=== PATIENT | male | born 1955 | race Caucasian/White ===

== ENCOUNTER 2019-09-04 09:06 | Emergency (ER) | payer BC ==
[2019-09-04 09:56] LABS: Glucose,Whole Blood 114 mg/dL (75-99)
[2019-09-04] MEDS ORDERED: SODIUM CHLORIDE 0.9% 1,000 ML IV STA (09:56)
[2019-09-04 10:25] LABS: ALT 31 U/L (4-49); AST 37 U/L (17-59); African American GFR (CKD) >90 (>60 ml/min/1.73 sqM); Albumin 4.5 g/dL (3.5-5.0); Alkaline Phosphatase 83 U/L (38-126); Anion Gap 7 mmol/L; Blood Urea Nitrogen 18 mg/dL (9-20); Calcium 9.4 mg/dL (8.4-10.2); Carbon Dioxide 26 mmol/L (22-30); Chloride 106 mmol/L (98-107); Creatine Kinase 226 U/L (55-170); Glucose 112 mg/dL (74-99); Non-African American GFR(CKD) 80 (>60 ml/min/1.73 sqM); Potassium 4.5 mmol/L (3.5-5.1); Sodium 139 mmol/L (137-145); Total Bilirubin 1.1 mg/dL (0.2-1.3); Total Protein 6.9 g/dL (6.3-8.2)
--- NOTE | 2019-09-04 10:30 | ED ---
Dizziness HPI - General Chief Complaint: Syncope Stated Complaint: Passed out Time Seen by Provider: 09/04/19 09:55 Source: patient Mode of arrival: ambulatory Limitations: no limitations - History of Present Illness Initial Comments: This is a 64-year-old male with a sensory benign history other than high cholesterol who was driving his car and again of his driveway with his in the passenger seat when he suddenly became unresponsive his head tilted to the side his eyes rolled but he was unresponsive for about 30 seconds. Patient states that he did have a warm feeling and felt somewhat lightheaded prior to the event . Patient had no complaints of palpitations headache dizziness blurry vision chest pain or other symptoms. He woke up relatively quickly. He did have an episode like this about 2 years ago that was never worked up. He did eat yogurt for breakfast today no change in medications no recent illnesses. No history of strokes heart or Lung disease. No other modifying factors at this time MD Complaint: other - Related Data Allergies Allergy/AdvReac Type Severity Reaction Status Date / Time No Known Allergies Allergy Verified 09/04/19 09:19 Review of Systems ROS Statement: Those systems with pertinent positive or pertinent negative responses have been documented in the HPI. ROS Other: All systems not noted in ROS Statement are negative. Past Medical History Past Medical History: Hyperlipidemia History of Any Multi-Drug Resistant Organisms: None Reported Past Surgical History: Appendectomy, Back Surgery, Hernia Repair, Tonsillectomy Past Psychological History: No Psychological Hx Reported Smoking Status: Never smoker Past Alcohol Use History: Occasional Past Drug Use History: None Reported General Exam - General Exam Comments Initial Comments: This is a well-developed well-nourished awake alert oriented 3 male Limitations: no limitations General appearance: alert, in no apparent distress Head exam: Present: atraumatic, normocephalic, normal inspection Eye exam: Present: normal appearance, PERRL, EOMI. Absent: scleral icterus, conjunctival injection, periorbital swelling ENT exam: Present: normal exam, mucous membranes moist Neck exam: Present: normal inspection, full ROM, other (No stridor JVD or bruits). Absent: tenderness, meningismus, lymphadenopathy Respiratory exam: Present: normal lung sounds bilaterally. Absent: respiratory distress, wheezes, rales, rhonchi, stridor Cardiovascular Exam: Present: regular rate, normal rhythm, normal heart sounds. Absent: systolic murmur, diastolic murmur, rubs, gallop, clicks GI/Abdominal exam: Present: soft, normal bowel sounds. Absent: distended, tenderness, guarding, rebound, rigid, bruit, pulsatile mass Extremities exam: Present: normal inspection, full ROM, normal capillary refill. Absent: tenderness, pedal edema, joint swelling, calf tenderness Back exam: Present: normal inspection Neurological exam: Present: alert, oriented X3, CN II-XII intact Psychiatric exam: Present: normal affect, normal mood Skin exam: Present: warm, dry, intact, normal color. Absent: rash Course Vital Signs 09/04/19 09/04/19 09/04/19 09:14 09:50 09:56 Temperature 97.8 F Pulse Rate 75 Pulse Rate [ 67 65 Collections Clerk ] Respiratory 18 18 Rate Blood Pressure 137/87 Blood Pressure [Sitting] Blood Pressure [Standing] Blood Pressure 131/86 [Supine] O2 Sat by Pulse 99 Oximetry 09/04/19 09/04/19 09:58 10:00 Temperature Pulse Rate Pulse Rate [ 63 93 Collections Clerk ] Respiratory 18 18 Rate Blood Pressure Blood Pressure 133/87 [Sitting] Blood Pressure 137/84 [Standing] Blood Pressure [Supine] O2 Sat by Pulse Oximetry - Reevaluation(s) Reevaluation #1: 09/04/19 12:57 I did reevaluate patient on multiple occasions he is asymptomatic he did have a marked difference in his heart rate on orthostatic testing this did improve after IV fluids. Medical Decision Making - Medical Decision Making Condition is asymptomatic he feels much improved after fluids the presentation is consistent with orthostatic/vasovagal episode. Patient will be discharge is cautioned not to drive until follow-up with his doctor in 2 days. Return if is any problems. The patient's family is in agreement with this. - Lab Data Result diagrams: 09/04/19 10:10 09/04/19 10:10 Lab Results 09/04/19 09/04/19 09/04/19 Range/Units 09:55 10:10 10:10 WBC 6.8 (3.8-10.6) k/uL RBC 5.04 (4.30-5.90) m/uL Hgb 14.9 (13.0-17.5) gm/dL Hct 43.6 (39.0-53.0) % MCV 86.5 (80.0-100.0) fL MCH 29.5 (25.0-35.0) pg MCHC 34.1 (31.0-37.0) g/dL RDW 12.4 (11.5-15.5) % Plt Count 173 (150-450) k/uL Neutrophils % 65 % Lymphocytes % 24 % Monocytes % 7 % Eosinophils % 1 % Basophils % 1 % Neutrophils # 4.4 (1.3-7.7) k/uL Lymphocytes # 1.6 (1.0-4.8) k/uL Monocytes # 0.5 (0-1.0) k/uL Eosinophils # 0.1 (0-0.7) k/uL Basophils # 0.0 (0-0.2) k/uL PT (9.0-12.0) sec INR (<1.2) APTT (22.0-30.0) sec D-Dimer (<0.60) mg/L FEU Sodium 139 (137-145) mmol/L Potassium 4.5 (3.5-5.1) mmol/L Chloride 106 (98-107) mmol/L Carbon Dioxide 26 (22-30) mmol/L Anion Gap 7 mmol/L BUN 18 (9-20) mg/dL Creatinine 1.00 (0.66-1.25) mg/dL Est GFR (CKD-EPI)AfAm >90 (>60 ml/min/1.73 sqM) Est GFR (CKD-EPI)NonAf 80 (>60 ml/min/1.73 sqM) Glucose 112 H (74-99) mg/dL POC Glucose (mg/dL) 114 H (75-99) mg/dL POC Glu Dog Catcher ID [place] Calcium 9.4 (8.4-10.2) mg/dL Magnesium 2.0 (1.6-2.3) mg/dL Total Bilirubin 1.1 (0.2-1.3) mg/dL AST 37 (17-59) U/L ALT 31 (4-49) U/L Alkaline Phosphatase 83 (38-126) U/L Creatine Kinase 226 H (55-170) U/L Troponin I (0.000-0.034) ng/mL Total Protein 6.9 (6.3-8.2) g/dL Albumin 4.5 (3.5-5.0) g/dL TSH 1.860 (0.465-4.680) mIU/L Urine Color Urine Appearance (Clear) Urine pH (5.0-8.0) Ur Specific [place] (1.001-1.035) Urine Protein (Negative) Urine Glucose (UA) (Negative) Urine Ketones (Negative) Urine Blood (Negative) Urine Nitrite (Negative) Urine Bilirubin (Negative) Urine Urobilinogen (<2.0) mg/dL Ur Leukocyte Esterase (Negative) 09/04/19 09/04/19 09/04/19 Range/Units 10:10 10:10 11:49 WBC (3.8-10.6) k/uL RBC (4.30-5.90) m/uL Hgb (13.0-17.5) gm/dL Hct (39.0-53.0) % MCV (80.0-100.0) fL MCH (25.0-35.0) pg MCHC (31.0-37.0) g/dL RDW (11.5-15.5) % Plt Count (150-450) k/uL Neutrophils % % Lymphocytes % % Monocytes % % Eosinophils % % Basophils % % Neutrophils # (1.3-7.7) k/uL Lymphocytes # (1.0-4.8) k/uL Monocytes # (0-1.0) k/uL Eosinophils # (0-0.7) k/uL Basophils # (0-0.2) k/uL PT 9.9 (9.0-12.0) sec INR 0.9 (<1.2) APTT 23.1 (22.0-30.0) sec D-Dimer 0.28 (<0.60) mg/L FEU Sodium (137-145) mmol/L Potassium (3.5-5.1) mmol/L Chloride (98-107) mmol/L Carbon Dioxide (22-30) mmol/L Anion Gap mmol/L BUN (9-20) mg/dL Creatinine (0.66-1.25) mg/dL Est GFR (CKD-EPI)AfAm (>60 ml/min/1.73 sqM) Est GFR (CKD-EPI)NonAf (>60 ml/min/1.73 sqM) Glucose (74-99) mg/dL POC Glucose (mg/dL) (75-99) mg/dL POC Glu Dog Catcher ID Calcium (8.4-10.2) mg/dL Magnesium (1.6-2.3) mg/dL Total Bilirubin (0.2-1.3) mg/dL AST (17-59) U/L ALT (4-49) U/L Alkaline Phosphatase (38-126) U/L Creatine Kinase (55-170) U/L Troponin I <0.012 (0.000-0.034) ng/mL Total Protein (6.3-8.2) g/dL Albumin (3.5-5.0) g/dL TSH (0.465-4.680) mIU/L Urine Color Light Yellow Urine Appearance Clear (Clear) Urine pH 6.5 (5.0-8.0) Ur Specific [place] 1.009 (1.001-1.035) Urine Protein Negative (Negative) Urine Glucose (UA) Negative (Negative) Urine Ketones Negative (Negative) Urine Blood Negative (Negative) Urine Nitrite Negative (Negative) Urine Bilirubin Negative (Negative) Urine Urobilinogen <2.0 (<2.0) mg/dL Ur Leukocyte Esterase Negative (Negative) - EKG Data -: EKG Interpreted by Nd EKG shows normal: sinus rhythm (Sinus bradycardia 59. Interval 160 QRS duration 86 QT since QTC 420/4:15 nonspecific inferior changes) - Radiology Data Radiology results: report reviewed (I did review the imaging and reports no acute findings.), image reviewed Disposition Clinical Impression: Vasovagal syncope, Syncope due to orthostatic hypotension, Dehydration Disposition: HOME SELF-CARE Condition: Good Instructions (If sedation given, give patient instructions): Syncope (ED), Dehydration (ED) Additional Instructions: Adequate fluid hydration, no driving or operating machinery until cleared by her doctor Is patient prescribed a controlled substance at d/c from ED?: No Referrals: Ladi Goldstein III, MD [Primary Care Provider] - 1-2 days
[2019-09-04 10:31] LABS: D-Dimer 0.28 mg/L FEU (<0.60); INR 0.9 (<1.2); Partial Thromboplastin Time 23.1 sec (22.0-30.0); Prothrombin Time 9.9 sec (9.0-12.0)
--- NOTE | 2019-09-04 10:32 | XR ---
EXAMINATION TYPE: XR chest 2V DATE OF EXAM ORDERED: 09/04/2019 HISTORY: syncope. REFERENCE: None. FINDINGS: The lungs are clear. Pleural spaces are clear. Heart size is normal. IMPRESSION: NORMAL CHEST.
--- NOTE | 2019-09-04 10:34 | CT ---
EXAMINATION TYPE: CT brain wo con DATE OF EXAM: 09/04/2019 COMPARISON: Previous study dated 11/09/2012. HISTORY: Syncope CT DLP: 1099.4 mGycm Automated exposure control for dose reduction was used. FINDINGS: Central structures are midline. There is no evidence of hydrocephalus. No acute focal lesion, mass ef fect or midline shift is seen. I do not see evidence of intracranial blood. Visualized portions of the paranasal sinuses and mastoids are clear. The bony calvarium is intact. IMPRESSION: NORMAL CT SCAN OF THE BRAIN.
[2019-09-04 10:54] LABS: Basophils % (A) 1 %; Eosinophils # (A) 0.1 k/uL (0-0.7); Eosinophils % (A) 1 %; HCT 43.6 % (39.0-53.0); HGB 14.9 gm/dL (13.0-17.5); Lymphocytes # (A) 1.6 k/uL (1.0-4.8); Lymphocytes % (A) 24 %; MCH 29.5 pg (25.0-35.0); MCHC 34.1 g/dL (31.0-37.0); MCV 86.5 fL (80.0-100.0); Mean Platelet Volume 8.4; Monocytes # (A) 0.5 k/uL (0-1.0); Monocytes % (A) 7 %; Neutrophils # (A) 4.4 k/uL (1.3-7.7); Neutrophils % (A) 65 %; Platelet Count 173 k/uL (150-450); RBC 5.04 m/uL (4.30-5.90); RDW 12.4 % (11.5-15.5); WBC 6.8 k/uL (3.8-10.6)
[2019-09-04] MEDS ORDERED: SODIUM CHLORIDE 0.9% 500 ML 500 ML IV STA (12:03)
[2019-09-04 12:20] LABS: Appearance,Urine Clear (Clear); Bilirubin,Urine Negative (Negative); Blood,Urine Negative (Negative); Color,Urine Light Yellow; Glucose,Urine (UA) Negative (Negative); Ketones,Urine Negative (Negative); Leukocyte Esterase,Urine Negative (Negative); Nitrite,Urine Negative (Negative); PH, Urine 6.5 (5.0-8.0); Protein,Urine Negative (Negative); Specific Gravity,Urine 1.009 (1.001-1.035); Urobilinogen,Urine <2.0 mg/dL (<2.0)
[2019-09-04 13:19] VITALS: BP 118/72; PULSE 64; RESP 16; TEMP 98.1
== END 2019-09-04 13:15 | disposition home or self-care (01) ==
LOC: EC 09:06
DX: I95.1 Orthostatic hypotension (principal); E86.0 Dehydration
CPT/HCPCS: 36415; 70450; 71046; 80053; 81003; 82550; 83735; 84443; 84484; 85025; 85379; 85610; 85730; 93005; 96360; 96361; 99284

== ENCOUNTER → 2019-09-29 | Outpatient (CLI) | payer BC ==
--- NOTE | 2019-09-29 10:42 | US ---
EXAMINATION TYPE: US carotid duplex BILAT DATE OF EXAM: 09/29/2019 COMPARISON: NONE CLINICAL HISTORY: R55 SYNCOPE AND COLLAPSE, R47.1 APHASIA. Patient stated had 2 syncopal episodes in past 2 years. EXAM MEASUREMENTS: RIGHT: Peak Systolic Velocity (PSV) cm/sec ----- Right CCA: 103.1 ----- Right ICA: 104.3 ----- Right ECA: 65.6 ICA/CCA ratio: 1.0 RIGHT: End Diastole cm/sec ----- Right CCA: 31.1 ----- Right ICA: 31.1 ----- Right ECA: 11.7 LEFT: Peak Systolic Velocity (PSV) cm/sec ----- Left CCA: 93.0 ----- Left ICA: 81.3 ----- Left ECA: 76.0 ICA/CCA ratio: 0.9 LEFT: End Diastole cm/sec ----- Left CCA: 28.5 ----- Left ICA: 30.1 ----- Left ECA: 20.4 VERTEBRALS (direction of flow): Right Vertebral: Antegrade Left Vertebral: Antegrade Rhythm: Normal Very mild intimal wall thickening is noted at bilateral carotid bifurcation. IMPRESSION: No evidence for hemodynamically significant stenosis. Criteria for Assigning % of Stenosis / Diameter reduction (Estimation based on the indirect measurements of the internal carotid artery velocities (ICA PSV). 1. Normal (no stenosis)=ICA PSV < 125 cm/s: ratio < 2.0: ICA EDV<40 cm/s. 2. Less than 50% stenosis=ICA PSV < 125 cm/s: ratio < 2.0: ICA EDV<40 cm/s. 3. 50 to 69% stenosis=ICA PSV of 125 to 230 cm/s: ration 2.0 ? 4.0: ICA EDV 40-100 cm/s. 4. Greater than 70% stenosis to near occlusion= ICA PSV > 230 cm/s: ratio > 4.0: ICA EDV > 100 cm/s. 5. Near occlusion= ICA PSV velocities may be low or undetectable: variable ratio and ICA EDV. 6. Total occlusion=unable to detect flow.
--- NOTE | 2019-09-29 10:43 | US ---
EXAMINATION TYPE: US thyroid st tissue head/neck DATE OF EXAM: 09/29/2019 COMPARISON: NONE CLINICAL HISTORY: E04.2 NONTOXIC MULTINODULAR GOITER. Syncopal episode x 2 in past 2 years. GLAND SIZE: Right Lobe: 5.2 x 1.5 x 1.3 cm Overall Parenchyma: homogenous Left Lobe: 5.4 x 1.5 x 1.1 cm Overall Parenchyma: homogeneous Isthmus Thickness: 0.3 cm NODULES RIGHT: # of nodules measured on right: 0 LEFT: # of nodules measured on left: 0 ISTHMUS: # of nodules measured in the isthmus: 0 Bilateral neck scanned: inferior to right thyroid is oval, hyperechoic nodule = 0.6 x 0.7 x 0.2cm IMPRESSION: Mildly enlarged thyroid lobes. Probable lymph node inferior to the right thyroid lobe
--- NOTE | 2019-10-22 12:42 | EM ---
EVENT MONITOR DATE OF SERVICE: 09/29/2019 The patient was monitored for 21 days. The baseline rhythm appeared to be sinus mechanism. The patient did have multiple episodes of sinus tachycardia with a heart rate between 150 to 180 beats per minute. No evidence of any significant sinus bradycardia noted. Beside that, the patient did have a total of 3 episodes of paroxysmal atrial tachycardia with a heart rate in the 80s. No advanced AV block seen. No evidence of any significant ventricular arrhythmia noted. The patient does not seems to have any symptoms. CONCLUSION: 1. This is a 21 day event monitor. 2. The baseline rhythm is a sinus mechanism. 3. The patient did have multiple episodes of sinus tachycardia with a heart rate above 150 and sometimes above 180 beats per minute. 4. The patient did have a total of 3 episodes of paroxysmal atrial tachycardia with a heart rate around 80 to 90 beats per minute. 5. No evidence of any significant ventricular arrhythmia noted. 6. No evidence of sinus pause or sinus arrest. 7. The patient reported no symptoms. MMODL / IJN: [id number] /
== END | disposition home or self-care (01) ==
LOC: RADUSWWP 09:34
PROVIDERS: ATTEND Family Medicine
DX: E04.9 Nontoxic goiter, unspecified (principal); I47.1 Supraventricular tachycardia; R55 Syncope and collapse; R47.01 Aphasia; R74.8 Abnormal levels of other serum enzymes
CPT/HCPCS: 36415; 76536; 82550; 82552; 82553; 93270; 93880

== ENCOUNTER 2022-12-25 06:49 | Emergency (ER) | payer MEDICARE, BC ==
[2022-12-25 06:55] VITALS: RESP 18
[2022-12-25] MEDS ORDERED: SODIUM CHLORIDE 0.9% 1,000 ML IV STA (07:05)
--- NOTE | 2022-12-25 07:12 | ED ---
Abdominal Pain HPI - General Chief Complaint: Abdominal Pain Stated Complaint: ABD PAIN Time Seen by Provider: 12/25/22 06:58 Source: patient, RN notes reviewed Mode of arrival: ambulatory Limitations: no limitations - History of Present Illness Initial Comments: 67-year-old male presents emergency Department chief complaint right-sided abdominal pain. Patient states started 2 days ago. Patient states pain is getting worse since starting with all movement including coughing with twisting and bending. Patient said no dysuria no hematuria no change in bowel habits no nausea vomiting no fever or chills. He states she's had a prior appendectomy pain is increasing towards [place] was at rest. - Related Data Home Medications Medication Instructions Recorded Confirmed Omeprazole 20 mg PO HS 12/25/22 12/25/22 Simvastatin [Zocor] 20 mg PO HS 12/25/22 12/25/22 Allergies Allergy/AdvReac Type Severity Reaction Status Date / Time No Known Allergies Allergy Verified 12/25/22 09:02 Review of Systems ROS Statement: Those systems with pertinent positive or pertinent negative responses have been documented in the HPI. ROS Other: All systems not noted in ROS Statement are negative. Past Medical History Past Medical History: Hyperlipidemia History of Any Multi-Drug Resistant Organisms: None Reported Past Surgical History: Appendectomy, Back Surgery, Hernia Repair, Tonsillectomy Past Psychological History: No Psychological Hx Reported Smoking Status: Never smoker Past Alcohol Use History: Occasional Past Drug Use History: None Reported General Exam Limitations: no limitations General appearance: alert, in no apparent distress Head exam: Present: atraumatic, normocephalic, normal inspection Eye exam: Present: normal appearance, PERRL, EOMI. Absent: scleral icterus, conjunctival injection, periorbital swelling ENT exam: Present: normal exam, mucous membranes moist Neck exam: Present: normal inspection, full ROM. Absent: tenderness, mening ismus, lymphadenopathy Respiratory exam: Present: normal lung sounds bilaterally. Absent: respiratory distress, wheezes, rales, rhonchi, stridor Cardiovascular Exam: Present: regular rate, normal rhythm, normal heart sounds. Absent: systolic murmur, diastolic murmur, rubs, gallop, clicks GI/Abdominal exam: Present: soft, tenderness (Right lower quadrant tenderness significant), normal bowel sounds. Absent: distended, guarding, rebound, rigid Back exam: Absent: CVA tenderness (R), CVA tenderness (L) Skin exam: Present: warm, dry, intact, normal color. Absent: rash Course Vital Signs 12/25/22 12/25/22 06:50 10:44 Temperature 97.6 F 97.8 F Pulse Rate 82 68 Respiratory 18 18 Rate Blood Pressure 147/86 121/94 O2 Sat by Pulse 99 98 Oximetry Medical Decision Making - Medical Decision Making Was pt. sent in by a medical professional or institution (, [facility], [employer], urgent care, hospital, or [facility]...) When possible be specific @ -No Did you speak to anyone other than the patient for history (EMS, parent, family, police, friend...)? What history was obtained from this source @ -No Did you review nursing and triage notes (agree or disagree)? Why? @ -I reviewed and agree with nursing and triage notes Were old charts reviewed (outside hosp., previous admission, EMS record, old EKG, old radiological studies, urgent care reports/EKG's, [facility] records)? Report findings @ -No old charts were reviewed Differential Diagnosis (chest pain, altered mental status, abdominal pain women, abdominal pain men, vaginal bleeding, weakness, fever, dyspnea, syncope, headache, dizziness, GI bleed, back pain, seizure, CVA, palpatations, mental health, musculoskeletal)? @ -Differential Abdominal Pain Men: Appendicitis, cholecystitis, diverticulosis, ischemic bowel, pancreatitis, hepatitis, UTI, gastroenteritis, AAA, incarcerated hernia, bowel obstruction, constipation, inflammatory bowel, hepatitis, peptic ulcer disease, splenic infarction, perforated viscus, testicular torsion, this is not meant to be an all-inclusive listicable EKG interpreted by me (3pts min.). @ -None X-rays interpreted by me (1pt min.). @ -None done CT interpreted by me (1pt min.). @ -CT abdomen and pelvis shows no acute process no evidence of infection or obstruction U/S interpreted by me (1pt. min.). @ -None done What testing was considered but not performed or refused? (CT, X-rays, U/S, labs)? Why? @ -None What meds were considered but not given or refused? Why? @ -None Did you discuss the management of the patient with other professionals (professionals i.e. , PA, DIG[employer] MARKETING INTERN, lab, RT, psych nurse, social media job titles, marsh buggy operator, teacher, radiation safety officer, embedded case manager)? Give summary @ -No Was smoking cessation discussed for >3mins.? @ -No Was critical care preformed (if so, how long)? @ -No Were there social determinants of health that impacted care today? How? (Homelessness, low income, unemployed, alcoholism, drug addiction, transportation, low edu. Level, literacy, decrease access to med. care, care home, rehab)? @ -No Was there de-escalation of care discussed even if they declined (Discuss DNR or withdrawal of care, Hospice)? DNR status @ -No What co-morbidities impacted this encounter? (DM, HTN, Smoking, COPD, CAD, Cancer, CVA, ARF, Chemo, Hep., AIDS, mental health diagnosis, sleep apnea, morbid obesity)? @ -None Was patient admitted / discharged? Hospital course, mention meds given and route, prescriptions, significant lab abnormalities, going to OR and other pertinent info. @ -Discharge patient's pain is reproducible and probably related to abdominal wall injury. Patient laboratory studies and CT unremarkable patient advised to rest, follow-up with PCP.. Undiagnosed new problem with uncertain prognosis? @ -No Drug Therapy requiring intensive monitoring for toxicity (Heparin, Nitro, Insulin, Cardizem)? @ -No Were any procedures done? @ -No Diagnosis/symptom? @ -Abdominal wall pain Acute, or Chronic, or Acute on Chronic? @ -Acute Uncomplicated (without systemic symptoms) or Complicated (systemic symptoms)? @ -Uncomplicated Side effects of treatment? @ -No Exacerbation, Progression, or Severe Exacerbation? @ -No Poses a threat to life or bodily function? How? (Chest pain, [place], [place], pneumonia, PE, COPD, DKA, ARF, appy, cholecystitis, CVA, Diverticulitis, Homicidal, Suicidal, threat to staff... and all critical care pts) @ -No - Lab Data Result diagrams: 12/25/22 07:12/25/22 07: Lab Results 12/25/22 12/25/22 12/25/22 Range/Units 07: 07: 07:23 WBC 8.2 (3.8-10.6) k/uL RBC 4.47 (4.30-5.90) m/uL Hgb 13.2 (13.0-17.5) gm/dL Hct 37.9 L (39.0-53.0) % MCV 84.8 (80.0-100.0) fL MCH 29.5 (25.0-35.0) pg MCHC 34.8 (31.0-37.0) g/dL RDW 13.1 (11.5-15.5) % Plt Count 166 (150-450) k/uL MPV 8.8 Neutrophils % Not Reportable Neutrophils % (Manual) 71 % Lymphocytes % Not Reportable Lymphocytes % (Manual) 20 % Monocytes % Not Reportable Monocytes % (Manual) 7 % Eosinophils % Not Reportable Eosinophils % (Manual) 1 % Basophils % Not Reportable Basophils % (Manual) 3 % Neutrophils # Not Reportable Neutrophils # (Manual) 5.82 (1.3-7.7) k/uL Lymphocytes # Not Reportable Lymphocytes # (Manual) 1.64 (1.0-4.8) k/uL Monocytes # Not Reportable Monocytes # (Manual) 0.57 (0-1.0) k/uL Eosinophils # Not Reportable Eosinophils # (Manual) 0.08 (0-0.7) k/uL Basophils # Not Reportable Basophils # (Manual) 0.25 H (0-0.2) k/uL Nucleated RBCs 0 (0-0) /100 WBC Manual Slide Review Performed RBC Morphology Normal Sodium 140 (137-145) mmol/L Potassium 4.2 (3.5-5.1) mmol/L Chloride 105 (98-107) mmol/L Carbon Dioxide 30 (22-30) mmol/L Anion Gap 5 mmol/L BUN 10 (9-20) mg/dL Creatinine 1.05 (0.66-1.25) mg/dL Est GFR (CKD-EPI)AfAm 86 (>60 ml/min/1.73 sqM) Est GFR (CKD-EPI)NonAf 75 (>60 ml/min/1.73 sqM) Glucose 110 H (74-99) mg/dL Plasma Lactic Acid [place] (0.7-2.0) mmol/L Calcium 8.9 (8.4-10.2) mg/dL Total Bilirubin 0.7 (0.2-1.3) mg/dL AST 36 (17-59) U/L ALT 39 (4-49) U/L Alkaline Phosphatase 100 (38-126) U/L Total Protein 6.1 L (6.3-8.2) g/dL Albumin 4.1 (3.5-5.0) g/dL Lipase 111 (23-300) U/L Urine Color Light Yellow Urine Appearance Clear (Clear) Urine pH 7.0 (5.0-8.0) Ur Specific [place] 1.008 (1.001-1.035) Urine Protein Negative (Negative) Urine Glucose (UA) Negative (Negative) Urine Ketones Negative (Negative) Urine Blood Negative (Negative) Urine Nitrite Negative (Negative) Urine Bilirubin Negative (Negative) Urine Urobilinogen <2.0 (<2.0) mg/dL Ur Leukocyte Esterase Negative (Negative) 12/25/22 Range/Units 07:23 WBC (3.8-10.6) k/uL RBC (4.30-5.90) m/uL Hgb (13.0-17.5) gm/dL Hct (39.0-53.0) % MCV (80.0-100.0) fL MCH (25.0-35.0) pg MCHC (31.0-37.0) g/dL RDW (11.5-15.5) % Plt Count (150-450) k/uL MPV Neutrophils % Neutrophils % (Manual) % Lymphocytes % Lymphocytes % (Manual) % Monocytes % Monocytes % (Manual) % Eosinophils % Eosinophils % (Manual) % Basophils % Basophils % (Manual) % Neutrophils # Neutrophils # (Manual) (1.3-7.7) k/uL Lymphocytes # Lymphocytes # (Manual) (1.0-4.8) k/uL Monocytes # Monocytes # (Manual) (0-1.0) k/uL Eosinophils # Eosinophils # (Manual) (0-0.7) k/uL Basophils # Basophils # (Manual) (0-0.2) k/uL Nucleated RBCs (0-0) /100 WBC Manual Slide Review RBC Morphology Sodium (137-145) mmol/L Potassium (3.5-5.1) mmol/L Chloride (98-107) mmol/L Carbon Dioxide (22-30) mmol/L Anion Gap mmol/L BUN (9-20) mg/dL Creatinine (0.66-1.25) mg/dL Est GFR (CKD-EPI)AfAm (>60 ml/min/1.73 sqM) Est GFR (CKD-EPI)NonAf (>60 ml/min/1.73 sqM) Glucose (74-99) mg/dL Plasma Lactic Acid [place] 0.7 (0.7-2.0) mmol/L Calcium (8.4-10.2) mg/dL Total Bilirubin (0.2-1.3) mg/dL AST (17-59) U/L ALT (4-49) U/L Alkaline Phosphatase (38-126) U/L Total Protein (6.3-8.2) g/dL Albumin (3.5-5.0) g/dL Lipase (23-300) U/L Urine Color Urine Appearance (Clear) Urine pH (5.0-8.0) Ur Specific [place] (1.001-1.035) Urine Protein (Negative) Urine Glucose (UA) (Negative) Urine Ketones (Negative) Urine Blood (Negative) Urine Nitrite (Negative) Urine Bilirubin (Negative) Urine Urobilinogen (<2.0) mg/dL Ur Leukocyte Esterase (Negative) Disposition Clinical Impression: Abdominal pain Disposition: HOME SELF-CARE Condition: Stable Instructions (If sedation given, give patient instructions): Abdominal Pain (ED) Additional Instructions: Please return to the Emergency Department if symptoms worsen or any other concerns. Is patient prescribed a controlled substance at d/c from ED?: No Referrals: Ladi Goldstein III, MD [Primary Care Provider] - 1-2 days Time of Disposition: 10:35
[2022-12-25 07:39] LABS: HCT 37.9 % (39.0-53.0); HGB 13.2 gm/dL (13.0-17.5); MCH 29.5 pg (25.0-35.0); MCHC 34.8 g/dL (31.0-37.0); MCV 84.8 fL (80.0-100.0); Mean Platelet Volume 8.8; Platelet Count 166 k/uL (150-450); RBC 4.47 m/uL (4.30-5.90); RDW 13.1 % (11.5-15.5); WBC 8.2 k/uL (3.8-10.6)
[2022-12-25 07:50] LABS: Albumin 4.1 g/dL (3.5-5.0); Calcium 8.9 mg/dL (8.4-10.2); Potassium 4.2 mmol/L (3.5-5.1); Total Bilirubin 0.7 mg/dL (0.2-1.3); Total Protein 6.1 g/dL (6.3-8.2)
[2022-12-25 08:52] LABS: Appearance,Urine Clear (Clear); Bilirubin,Urine Negative (Negative); Blood,Urine Negative (Negative); Color,Urine Light Yellow; Glucose,Urine (UA) Negative (Negative); Ketones,Urine Negative (Negative); Leukocyte Esterase,Urine Negative (Negative); Nitrite,Urine Negative (Negative); Protein,Urine Negative (Negative); Specific Gravity,Urine 1.008 (1.001-1.035); Urobilinogen,Urine <2.0 mg/dL (<2.0)
--- NOTE | 2022-12-25 09:42 | CT ---
EXAMINATION TYPE: CT abdomen pelvis w con DATE OF EXAM: 12/25/2022 COMPARISON: None. HISTORY: RLQ pain. CT DLP: 1027.3 mGycm, Automated Exposure Control for Dose Reduction was Utilized. CONTRAST: CT scan of the abdomen and pelvis is performed without oral and with IV Contrast, patient injected wi th 100 mL of Isovue 300. FINDINGS: LUNG BASES: No significant abnormality is appreciated. LIVER/GB: No significant abnormality is appreciated. PANCREAS: No significant abnormality is seen. SPLEEN: No significant abnormality is seen. ADRENALS: No significant abnormality is seen. KIDNEYS: Symmetric cortical medullary uptake and excretion without hydronephrosis seen bilaterally. T here are central simple parapelvic cyst in the left kidney identified. Moderately distended bladder. BOWEL: No suspicious small or large bowel dilatation. Terminal ileum appears grossly within normal limits. Appendix not seen with certainty. No inflammatory changes at base of cecum in the right uppe r pelvis. PROSTATE/SEMINAL VESICLES: Scattered left-sided pelvic phleboliths. Prostate gland measures upper rivas its of normal in size. LYMPH NODES: No greater than 1cm abdominal or pelvic lymph nodes are appreciated. OSSEOUS STRUCTURES: Posterior interpedicular rods and screws L5-S1 level. Artificial disc material. G rade 1 anterolisthesis L4 on L5. OTHER: [id number] peripheral mixed plaque of the aorta extends into branch vessels. IMPRESSION: Normal or abnormal appendix not identified. No inflammatory change at base of cecum to adler ggest acute appendicitis. No bowel obstruction. No acute findings clearly seen.
[2022-12-25 09:51] LABS: Basophils # (M) 0.25 k/uL (0-0.2); Eosinophils # (M) 0.08 k/uL (0-0.7); Lymphocytes # (M) 1.64 k/uL (1.0-4.8); Monocytes # (M) 0.57 k/uL (0-1.0); Neutrophils # (M) 5.82 k/uL (1.3-7.7); Neutrophils % (M) 71 %; Nucleated Red Blood Cells 0 /100 WBC (0-0); Total Cells Counted 200
[2022-12-25 09:58] LABS: RBC Morphology Normal
[2022-12-25 10:45] VITALS: BP 121/94; PULSE 68; TEMP 97.8
== END 2022-12-25 10:45 | disposition home or self-care (01) ==
LOC: EC 06:49
DX: R10.31 Right lower quadrant pain (principal); E78.5 Hyperlipidemia, unspecified; Z79.899 Other long term (current) drug therapy; Z90.49 Acquired absence of other specified parts of digestive tract
CPT/HCPCS: 36415; 80053; 83605; 83690; 85025; 81003; 74177; 99284; 96360; Q9967

== ENCOUNTER 2023-04-18 07:44 | Emergency (ER) | payer MEDICARE, BC ==
[2023-04-18 07:53] VITALS: TEMP 98.4
[2023-04-18] MEDS ORDERED: ONDANSETRON 4 MG/2 ML VIAL IVP STA (08:05)
[2023-04-18] MEDS ORDERED: KETOROLAC 15 MG/ML 1 ML VIAL IVP STA (08:05)
--- NOTE | 2023-04-18 08:08 | ED ---
General Adult HPI - General Chief complaint: Abdominal Pain Stated complaint: Abdominal pain Time Seen by Provider: 04/18/23 07:54 Source: patient, RN notes reviewed Mode of arrival: ambulatory Limitations: no limitations - History of Present Illness Initial comments: Patient is a pleasant 67-year-old male presenting to the emergency department with concerns with abdominal pain. Onset of symptoms was this morning. Discomfort is moderate to severe. Discomfort is steady. Discomfort does increase a little bit with movement. Patient has had some right mid back discomfort for the past one week however that has now resolved. Patient has mild nausea. No vomiting. No constipation or diarrhea. No hematuria or dysuria. No fever. No history of similar symptoms previously. On exam patient states area near the right CVA is where previous discomfort was - Related Data Home Medications Medication Instructions Recorded Confirmed Omeprazole 20 mg PO HS 12/25/22 12/25/22 Simvastatin [Zocor] 20 mg PO HS 12/25/22 12/25/22 Previous Rx's Medication Instructions Recorded Ketorolac [Toradol] 10 mg PO Q6HR PRN #15 tab 04/18/23 Metoclopramide HCl [Reglan] 10 mg PO Q6HR PRN #15 tablet 04/18/23 Allergies Allergy/AdvReac Type Severity Reaction Status Date / Time No Known Allergies Allergy Verified 04/18/23 07:53 Review of Systems ROS Statement: Those systems with pertinent positive or pertinent negative responses have been documented in the HPI. ROS Other: All systems not noted in ROS Statement are negative. Constitutional: Denies: fever Eyes: Denies: eye pain ENT: Denies: ear pain Respiratory: Denies: cough Cardiovascular: Denies: chest pain Endocrine: Denies: fatigue Gastrointestinal: Reports: as per HPI, abdominal pain, nausea. Denies: vomiting Genitourinary: Denies: dysuria Musculoskeletal: Reports: as per HPI Skin: Denies: rash Past Medical History Past Medical History: Hyperlipidemia History of Any Multi-Drug Resistant Organisms: None Reported Past Surgical History: Appendectomy, Back Surgery, Hernia Repair, Tonsillectomy Past Psychological History: No Psychological Hx Reported Smoking Status: Never smoker Past Alcohol Use History: Occasional Past Drug Use History: None Reported General Exam Limitations: no limitations General appearance: alert, in no apparent distress Head exam: Present: normocephalic Eye exam: Present: normal appearance, PERRL Neck exam: Present: normal inspection Respiratory exam: Present: normal lung sounds bilaterally Cardiovascular Exam: Present: regular rate, normal rhythm Expanded Peripheral pulses: 2+: Dorsalis Pedis (R), Dorsalis Pedis (L) GI/Abdominal exam: Present: soft, tenderness (Right mid to upper abdomen), normal bowel sounds. Absent: distended, rebound, rigid, pulsatile mass Extremities exam: Present: normal inspection Back exam: Present: normal inspection. Absent: tenderness, CVA tenderness (R) Neurological exam: Present: alert Psychiatric exam: Present: normal affect, normal mood Skin exam: Present: normal color Course Vital Signs 04/18/23 04/18/23 07:51 08:52 Temperature 98.4 F Pulse Rate 84 64 Respiratory 20 18 Rate Blood Pressure 138/97 151/100 O2 Sat by Pulse 99 100 Oximetry Medical Decision Making - Medical Decision Making Was pt. sent in by a medical professional or institution (, PA, COMPUTER SUPPORT SPECIALIST INSTRUCTOR, urgent care, hospital, or [facility]...) When possible be specific @ -No Did you speak to anyone other than the patient for history (EMS, parent, family, police, friend...)? What history was obtained from this source @ -No Did you review nursing and triage notes (agree or disagree)? Why? @ -I reviewed and agree with nursing and triage notes Were old charts reviewed (outside hosp., previous admission, EMS record, old EKG, old radiological studies, urgent care reports/EKG's, [facility] records)? Report findings @ -No old charts were reviewed Differential Diagnosis (chest pain, altered mental status, abdominal pain women, abdominal pain men, vaginal bleeding, weakness, fever, dyspnea, syncope, headache, dizziness, GI bleed, back pain, seizure, CVA, palpatations, mental health, musculoskeletal)? @ -Differential Abdominal Pain Men: Appendicitis, cholecystitis, diverticulosis, ischemic bowel, pancreatitis, hepatitis, UTI, gastroenteritis, AAA, incarcerated hernia, bowel obstruction, constipation, inflammatory bowel, hepatitis, peptic ulcer disease, splenic infarction, perforated viscus, testicular torsion, this is not meant to be an all-inclusive list EKG interpreted by me (3pts min.). @ -As above X-rays interpreted by me (1pt min.). @ -Abdominal x-ray does not reveal acute abnormality CT interpreted by me (1pt min.). @ -Report reviewed U/S interpreted by me (1pt. min.). @ -Report reviewed What testing was considered but not performed or refused? (CT, X-rays, U/S, farhan [facility]e)? Why? @ -None What meds were considered but not given or refused? Why? @ -None Did you discuss the management of the patient with other professionals (professionals i.e. Dr., PA, COMPUTER SUPPORT SPECIALIST INSTRUCTOR, lab, RT, psych nurse, social psychologist, electronics technology department chair, teacher, juvenile corrections officer, family preservation caseworker)? Give summary @ -No Was smoking cessation discussed for >3mins.? @ -No Was critical care preformed (if so, how long)? @ -No Were there social determinants of health that impacted care today? How? (Homelessness, low income, unemployed, alcoholism, drug addiction, transportation, low edu. Level, literacy, decrease access to med. care, long term, rehab)? @ -No Was there de-escalation of care discussed even if they declined (Discuss DNR or withdrawal of care, Hospice)? DNR status @ -No What co-morbidities impacted this encounter? (DM, HTN, Smoking, COPD, CAD, Cancer, CVA, ARF, Chemo, Hep., AIDS, mental health diagnosis, sleep apnea, morbid obesity)? @ -None Was patient admitted / discharged? Hospital course, mention meds given and route, prescriptions, significant lab abnormalities, going to OR and other pertinent info. @ -Patient reevaluated and feeling much better. Patient states discomfort is slightly starting to return and is receptive to repeat medication prior to discharge. Patient and family updated on results and plan as well as need for follow-up. Undiagnosed new problem with uncertain prognosis? @ -No Drug Therapy requiring intensive monitoring for toxicity (Heparin, Nitro, Insulin, Cardizem)? @ -No Were any procedures done? @ -No Diagnosis/symptom? @ -Ureterolithiasis Acute, or Chronic, or Acute on Chronic? @ -Acute Uncomplicated (without systemic symptoms) or Complicated (systemic symptoms)? @ -default Side effects of treatment? @ -No Exacerbation, Progression, or Severe Exacerbation? @ -No Poses a threat to life or bodily function? How? (Chest pain, [place], [place], pneumonia, PE, COPD, DKA, ARF, appy, cholecystitis, CVA, Diverticulitis, Homicidal, Suicidal, threat to staff... and all critical care pts) @ -No - Lab Data Result diagrams: 04/18/23 08:22 04/18/23 08:22 Lab Results 04/18/23 04/18/23 04/18/23 Range/Units 08:22 08:22 08:22 WBC 5.5 (3.8-10.6) k/uL RBC 4.83 (4.30-5.90) m/uL Hgb 14.5 (13.0-17.5) gm/dL Hct 42.4 (39.0-53.0) % MCV 87.6 (80.0-100.0) fL MCH 30.1 (25.0-35.0) pg MCHC 34.3 (31.0-37.0) g/dL RDW 13.3 (11.5-15.5) % Plt Count 163 (150-450) k/uL MPV 8.6 Neutrophils % 55 % Lymphocytes % 30 % Monocytes % 8 % Eosinophils % 2 % Basophils % 0 % Neutrophils # 3.0 (1.3-7.7) k/uL Lymphocytes # 1.7 (1.0-4.8) k/uL Monocytes # 0.4 (0-1.0) k/uL Eosinophils # 0.1 (0-0.7) k/uL Basophils # 0.0 (0-0.2) k/uL PT 9.7 (9.0-12.0) sec INR 0.9 (<1.2) APTT 23.0 (22.0-30.0) sec Sodium 139 (137-145) mmol/L Potassium 4.5 (3.5-5.1) mmol/L Chloride 107 (98-107) mmol/L Carbon Dioxide 26 (22-30) mmol/L Anion Gap 6 mmol/L BUN 17 (9-20) mg/dL Creatinine 1.04 (0.66-1.25) mg/dL Est GFR (CKD-EPI)AfAm 87 (>60 ml/min/1.73 sqM) Est GFR (CKD-EPI)NonAf 75 (>60 ml/min/1.73 sqM) Glucose 114 H (74-99) mg/dL Calcium 9.5 (8.4-10.2) mg/dL Total Bilirubin 0.7 (0.2-1.3) mg/dL AST 42 (17-59) U/L ALT 35 (4-49) U/L Alkaline Phosphatase 79 (38-126) U/L Total Protein 6.5 (6.3-8.2) g/dL Albumin 4.3 (3.5-5.0) g/dL Amylase 44 (30-110) U/L Lipase 87 (23-300) U/L Disposition Clinical Impression: Ureterolithiasis Disposition: HOME SELF-CARE Condition: Stable Instructions (If sedation given, give patient instructions): Kidney Stones (ED) Additional Instructions: Please do follow-up with primary care physician in the next day or 2 for recheck. Have primary care physician review computed tomography scan. Please also follow-up with urology, number provided. Have them review computed tomography scan as well. Return for fever, uncontrolled pain, uncontrolled vomiting, worsening symptoms or any other concerns. Prescriptions have been sent to pharmacy. Prescriptions: Metoclopramide HCl [Reglan] 10 mg PO Q6HR PRN #15 tablet PRN Reason: Nausea Ketorolac [Toradol] 10 mg PO Q6HR PRN #15 tab PRN Reason: Pain Is patient prescribed a controlled substance at d/c from ED?: No Referrals: Radu Truong MD [STAFF PHYSICIAN] - 1-2 days Rashaad Keller MD [STAFF PHYSICIAN] - 1-2 days Time of Disposition: 13:50
[2023-04-18 08:30] LABS: Basophils % (A) 0 %; Eosinophils # (A) 0.1 k/uL (0-0.7); Eosinophils % (A) 2 %; HCT 42.4 % (39.0-53.0); HGB 14.5 gm/dL (13.0-17.5); Lymphocytes # (A) 1.7 k/uL (1.0-4.8); Lymphocytes % (A) 30 %; MCH 30.1 pg (25.0-35.0); MCHC 34.3 g/dL (31.0-37.0); MCV 87.6 fL (80.0-100.0); Mean Platelet Volume 8.6; Monocytes # (A) 0.4 k/uL (0-1.0); Monocytes % (A) 8 %; Neutrophils % (A) 55 %; Platelet Count 163 k/uL (150-450); RBC 4.83 m/uL (4.30-5.90); RDW 13.3 % (11.5-15.5); WBC 5.5 k/uL (3.8-10.6)
[2023-04-18 08:39] LABS: INR 0.9 (<1.2); Prothrombin Time 9.7 sec (9.0-12.0)
[2023-04-18 08:40] LABS: ALT 35 U/L (4-49); AST 42 U/L (17-59); African American GFR (CKD) 87 (>60 ml/min/1.73 sqM); Albumin 4.3 g/dL (3.5-5.0); Alkaline Phosphatase 79 U/L (38-126); Amylase 44 U/L (30-110); Anion Gap 6 mmol/L; Blood Urea Nitrogen 17 mg/dL (9-20); Calcium 9.5 mg/dL (8.4-10.2); Carbon Dioxide 26 mmol/L (22-30); Chloride 107 mmol/L (98-107); Glucose 114 mg/dL (74-99); Lipase 87 U/L (23-300); Non-African American GFR(CKD) 75 (>60 ml/min/1.73 sqM); Potassium 4.5 mmol/L (3.5-5.1); Sodium 139 mmol/L (137-145); Total Bilirubin 0.7 mg/dL (0.2-1.3); Total Protein 6.5 g/dL (6.3-8.2)
--- NOTE | 2023-04-18 08:41 | XR ---
EXAMINATION TYPE: XR KUB DATE OF EXAM: 04/18/2023 COMPARISON: NONE HISTORY: Pain TECHNIQUE: Single supine KUB image of the abdomen is obtained FINDINGS: Small bowel demonstrates no evidence for dilatation or air fluid levels. Gas and fecal material is seen in non-distended colon. No convincing evidence for pneumoperitoneum. No unusual calcifications. The lung bases are clear. The osseous structures are intact. Postoperative changes of lumbar fusion. IMPRESSION: 1. Overall nonobstructive bowel gas pattern.
--- NOTE | 2023-04-18 09:12 | US ---
EXAMINATION TYPE: US abd limited kidneys/bladder DATE OF EXAM: 04/18/2023 COMPARISON: 12/25/2022 CLINICAL INDICATION: Male, 67 years old with history of pain; Pt states right flank pain TECHNIQUE: Multiple sonographic images of the right upper quadrant, bilateral kidneys, and bladder ar e obtained. FINDINGS: EXAM MEASUREMENTS: Liver Length: 13.6 cm Gallbladder Wall: 0.2 cm CBD: 0.3 cm Right Kidney: 10.9 x 4.7 x 5.6 cm Left Kidney: 9.9 x 5.4 x 5.6 cm Pancreas: Obscured by bowel gas Liver: Slightly echogenic. No focal lesion seen. Gallbladder: wnl, pt unable to roll LLD due to pain CBD: wnl Right Kidney: wnl, lower pole gassed out Left Kidney: Parapelvic cysts as visualized on prior CT, lower pole gassed out Bladder: wnl Bilateral Jets Seen No IMPRESSION: 1. Some exam limitations. On the right, no hydronephrosis is seen. The lower pole is obscured by lynn l gas shadowing and cannot be assessed. 2. Underlying hepatic steatosis. 3. No gallstones or biliary ductal dilatation.
[2023-04-18 09:32] VITALS: RESP 18
[2023-04-18] MEDS ORDERED: HYDROmorphone 1 MG/ML 1 ML SYRINGE IVP STA ×2 (09:35→13:46)
--- NOTE | 2023-04-18 11:08 | CT ---
EXAMINATION TYPE: CT abdomen pelvis wo con DATE OF EXAM: 04/18/2023 COMPARISON: 12/25/2022 HISTORY: 67-year-old male right flank and lower quadrant pain radiating to the back. CT DLP: 530.1 mGycm. Automated exposure control for dose reduction was used. TECHNIQUE: Contiguous axial scanning of the abdomen and pelvis without IV contrast. Coronal and sagit renee reconstructions performed. FINDINGS: Heart normal size without pericardial effusion. Scattered coronary artery calcifications are present. Lung bases clear without pleural effusion. Tiny hiatal hernia. Noncontrast appearance of the liver, gallbladder, adrenal glands, spleen, and pancreas within normal limits. Bilateral renal parapelvic cysts measuring up to 2.5 cm. No nephrolithiasis or hydronephrosis is amy rly seen. No dilated small bowel, free fluid, or free air. No mesenteric or retroperitoneal lymphadenopathy. There is a 4 mm stone at the distal right ureter, axial image 62. Area aneurysm right and left common iliac arteries measuring 2.3 cm on the right t and 1.9 cm on the left. Mild overall stool burden. No pericolic inflammatory change. Bladder is urine distended. Prostate gland enlargement 5.1 cm wide. Multiple pelvic phlebolith. No ab normal fluid collection in the pelvis or pelvic lymphadenopathy. Bones: Patient status post L5-S1 posterior and interbody fusion. Facet arthropathy above with grade 1 anterolisthesis L4-L5. IMPRESSION: 1. There is a 4 mm stone at the distal right ureter. No significant hydronephrosis. 2. Tiny hiatal hernia. 3. 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 Appropriate follow-up recommended. 4. Prostatomegaly of 5.1 cm wide.
[2023-04-18] MEDS ORDERED: ACET/COD 300 MG/30 MG STARTER PACK 6 TAB BTL PO STA (13:51)
[2023-04-18 15:33] VITALS: BP 136/78; PULSE 80
== END 2023-04-18 14:14 | disposition home or self-care (01) ==
LOC: EC 07:44
DX: N20.1 Calculus of ureter (principal); E78.5 Hyperlipidemia, unspecified; Z79.899 Other long term (current) drug therapy; Z90.49 Acquired absence of other specified parts of digestive tract
CPT/HCPCS: 36415; 80053; 82150; 83690; 85025; 85610; 85730; 74018; 76705; 76770; 74176; 99285; 96374; 96375 ×2; 96376; J2405; J1170; J1885

== ENCOUNTER 2024-10-27 17:16 | Inpatient (IN) | payer BC, MEDICARE ==
[2024-10-27 17:47] LABS: Glucose,Whole Blood 123 mg/dL (70-110)
[2024-10-27 18:12] LABS: Basophils % (A) 0 %; Eosinophils # (A) 0.1 k/uL (0-0.7); Eosinophils % (A) 0 %; HCT 43.2 % (39.0-53.0); HGB 14.6 gm/dL (13.0-17.5); Lymphocytes # (A) 1.3 k/uL (1.0-4.8); Lymphocytes % (A) 10 %; MCH 29.5 pg (25.0-35.0); MCHC 33.7 g/dL (31.0-37.0); MCV 87.4 fL (80.0-100.0); Mean Platelet Volume 8.1; Monocytes # (A) 0.6 k/uL (0-1.0); Monocytes % (A) 4 %; Neutrophils # (A) 10.9 k/uL (1.3-7.7); Neutrophils % (A) 84 %; Platelet Count 186 k/uL (150-450); RBC 4.94 m/uL (4.30-5.90); RDW 12.7 % (11.5-15.5)
--- NOTE | 2024-10-27 18:19 | CT ---
EXAMINATION TYPE: CODE STROKE: CT brain wo contr DATE OF EXAM: 10/27/2024 COMPARISON: CT brain September 04, 2019 CLINICAL INDICATION: Male, 69 years old with history of Neuro deficit, acute, stroke suspected, Code stroke. TECHNIQUE: CT scan of the head is performed without contrast. CT DLP: 1175.2 mGycm. Automated Exposure Control for Dose Reduction was Utilized. FINDINGS: There is no acute intracranial hemorrhage or midline shift identified. Ventricles and sul ci are within normal limits in size for patient's age. Jewell-white matter differentiation is maintaine d. The globes are intact and the visualized sinuses are clear. IMPRESSION: No acute intracranial hemorrhage or midline shift. No significant change from prior. If Clinical concern for acute stroke persists further investigation with MRI study may be warranted. [facility], , 10/27/2024 6:17 PM
[2024-10-27 18:21] LABS: ALT 35 U/L (4-49); AST 44 U/L (17-59); African American GFR (CKD) >90 (>60 ml/min/1.73 sqM); Albumin 4.6 g/dL (3.5-5.0); Alkaline Phosphatase 85 U/L (38-126); Anion Gap 9 mmol/L; Blood Urea Nitrogen 20 mg/dL (9-20); Calcium 9.6 mg/dL (8.4-10.2); Carbon Dioxide 25 mmol/L (22-30); Chloride 104 mmol/L (98-107); Creatine Kinase 503 U/L (55-170); Glucose 117 mg/dL (74-99); Non-African American GFR(CKD) 78 (>60 ml/min/1.73 sqM); Potassium 4.1 mmol/L (3.5-5.1); Sodium 138 mmol/L (137-145); Total Bilirubin 0.7 mg/dL (0.2-1.3); Total Protein 6.6 g/dL (6.3-8.2)
[2024-10-27 18:26] LABS: Partial Thromboplastin Time 21.7 sec (22.0-30.0); Prothrombin Time 10.6 sec (10.0-12.5)
[2024-10-27] MEDS: SODIUM CHLORIDE 0.9% 1,000 ML IV STA ×2 (18:26→21:53)
--- NOTE | 2024-10-27 18:37 | CT ---
EXAMINATION TYPE: CT angio head neck DATE OF EXAM: 10/27/2024 COMPARISON: NONE CLINICAL INDICATION: Male, 69 years old with history of Neuro deficit, acute, stroke suspected, Code stroke., TECHNIQUE: CTA scan of the head and neck is performed with IV Contrast, patient injected with 65 ml mL of Isovue 370, axial images are obtained, coronal and sagittal reformatted images are reviewed. 3D reconstructed images are created on an independent workstation and reviewed. NASCET criteria was use d in interpretation of this exam? CT DLP: 616.1 mGycm. Automated Exposure Control for Dose Reduction was Utilized. FINDINGS: Vertebral arteries: The vertebral arteries are patent. Vertebral artery dominance: Codominant Basilar artery: The basilar artery is intact. The basilar artery bifurcation is normal. Internal Carotid arteries: [id number] peripheral calcified plaque bilaterally EDILIA: Patent with no evidence of aneurysm. ACOM: Present without evidence of aneurysm. MCA: Patent with no evidence of aneurysm. PIZZA CHEF: Patent with no evidence of aneurysm. PCOM: Patent on the right. Dural sinuses: Patent. CTA NECK: Right Carotid System: The common carotid artery and external carotid artery are patent. The carotid bifurcation demonstrate s no evidence of hemodynamically significant stenosis. The remaining portions of the internal carotid artery demonstrate normal size without significant narrowing. Left Carotid System: The common carotid artery and external carotid artery are patent. The carotid bifurcation demonstrate s no evidence of hemodynamically significant stenosis. The remaining portions of the internal carotid artery demonstrate normal size without significant narrowing. Vertebral arteries are patent without evidence hemodynamically significant stenosis. There is a three-vessel aortic arch. The origins of the great vessels are patent. No evidence of hemo dynamically significant stenosis. Mild to moderate disc space narrowing at C6-C7 level. IMPRESSION: No evidence of dissection of the cervical internal carotid arteries or vertebral arteries. No any evidence of significant stenosis at the carotid bifurcations. No evidence of intracranial large vessel occlusion or intracranial aneurysm. [facility], , 10/27/2024 6:35 PM
--- NOTE | 2024-10-27 18:46 | XR ---
EXAMINATION TYPE: XR chest 2V DATE OF EXAM: 10/27/2024 CLINICAL INDICATION: Male, 69 years old with history of altered mental status, TECHNIQUE: Frontal and lateral views of the chest are obtained. COMPARISON: Chest x-ray September 04, 2019 FINDINGS: There is no focal air space opacity, pleural effusion, or pneumothorax seen. The cardiac silhouette size remains within normal limits. Overlying EKG leads are redemonstrated. The osseous st ructures are intact. IMPRESSION: No acute cardiopulmonary process. [facility], , 10/27/2024 6:44 PM
[2024-10-27 18:53] LABS: Influenza A Not Detected (Not Detectd); Influenza B Not Detected (Not Detectd); RSV Not Detected (Not Detectd)
[2024-10-27 20:03] LABS: Appearance,Urine Clear (Clear); Bilirubin,Urine Negative (Negative); Blood,Urine Negative (Negative); Color,Urine Colorless; Glucose,Urine (UA) Negative (Negative); Ketones,Urine Negative (Negative); Leukocyte Esterase,Urine Negative (Negative); Nitrite,Urine Negative (Negative); Protein,Urine Negative (Negative); Specific Gravity,Urine 1.028 (1.001-1.035); Urobilinogen,Urine <2.0 mg/dL (<2.0)
[2024-10-27 20:14] LABS: Amphetamine Screen,Urine Not Detected (NotDetected); Barbiturate Screen,Urine Not Detected (NotDetected); Benzodiazepines Screen,Urine Not Detected (NotDetected); Cocaine Screen,Urine Not Detected (NotDetected); Methadone Screen, Urine Not Detected (NotDetected); Opiate Screen,Urine Not Detected (NotDetected); Oxycodone Screen, Urine Not Detected (NotDetected); Phencyclidine Screen,Urine Not Detected (NotDetected); Tricyclic Antidepressant,Urine Not Detected (NotDetected); Urn Cannabinoid Scrn Not Detected (NotDetected)
[2024-10-27] MEDS: ASPIRIN 325 MG TAB PO STA (20:14)
--- NOTE | 2024-10-27 21:12 | ED ---
General Adult HPI - General Chief complaint: Altered Mental Status Stated complaint: syncope Time Seen by Provider: 10/27/24 17:40 Source: patient, RN notes reviewed, old records reviewed Mode of arrival: ambulatory Limitations: no limitations - History of Present Illness Initial comments: Patient is a 69-year-old male who presents emergency department complaining of ABG. Possibly had a syncopal episode in a chair at home as well. Last def initive known well was likely somewhere around 12 noon when his spoke with him on the phone. Patient then may have gone out and right believes it may have eaten some pizza but not definitive. At some point he did fall back asleep. Was found by sleeping in a chair or passed out in a chair at 4 PM. He was having a hard time remembering things that went on earlier in the day. Also was having a hard time remembering her recent events. They recently returned from [place] and he could not remember where they came from or where they were. Thought they returned on Friday when they returned on Friday. Cannot remember what he did in the morning. Cannot remember where his went. This is all sudden onset with no history of similar symptoms. Denies any other focal deficits. Past medical history remarkable for hyperlipidemia. Presents for further evaluation at this time. Is not on blood thinners. Denies any trauma. - Related Data Home Medications Medication Instructions Recorded Confirmed Simvastatin [Zocor] 20 mg PO HS 12/25/22 10/27/24 Calcium Chew(Unknown Dose) 1 tab PO DAILY 10/27/24 10/27/24 Co Q-10(Unknown Dose) 1 tab PO DAILY 10/27/24 10/27/24 Memory Supplement(Unknown) 1 tab PO DAILY 10/27/24 10/27/24 [place] 3-6-9(Unknown Dose) 1 cap PO DAILY 10/27/24 10/27/24 Total Beets 1 tab PO DAILY 10/27/24 10/27/24 Turmeric(Unknown Dose) 1 tab PO DAILY 10/27/24 10/27/24 Vitamin E(Unknown Dose) 1 cap PO DAILY 10/27/24 10/27/24 Allergies Allergy/AdvReac Type Severity Reaction Status Date / Time No Known Allergies Allergy Verified 10/27/24 19:59 Review of Systems ROS Statement: Those systems with pertinent positive or pertinent negative responses have been documented in the HPI. Review of Systems: CONST: Denies fever EYES: Denies blurry vision ENT: Denies nasal congestion C/V: Denies Chest pain RESP: Denies shortness of breath GI: Denies abdominal pain : Denies dysuria SKIN: Denies rash. MSK: Denies joint pain. NEURO: Denies headache ROS Other: All systems not noted in ROS Statement are negative. Past Medical History Past Medical History: Hyperlipidemia History of Any Multi-Drug Resistant Organisms: None Reported Past Surgical History: Appendectomy, Back Surgery, Hernia Repair, Tonsillectomy Past Psychological History: No Psychological Hx Reported Smoking Status: Never smoker Past Alcohol Use History: Occasional Past Drug Use History: None Reported General Exam - General Exam Comments Initial Comments: General: Appears in no acute distress. HEAD: Normal with no signs of head trauma. EYES: PERRLA, EOMI, conjunctiva normal, no discharge. Pupils are 3 mm and equal bilaterally. ENT: Hearing grossly intact, normal oropharynx. RESPIRATORY: Clear breath sounds bilaterally. No wheezes, rales, or rhonchi. C/V: Regular rate and rhythm. S1 and S2 auscultated, no edema, peripheral pulses 2+ and intact throughout ABD: Abd is soft, nontender, nondistended EXT: Normal range of motion, no obvious deformity SKIN: No rashes or lesions observed on exposed skin. NEURO: Alert and oriented x 4. Cranial nerves II-XII intact. No focal sensory or strength deficits. NIH is technically 0. However patient is having issues with memory. Cannot recall recent events over the last couple days that before this afternoon he could do so. Is having some amnesia with short-term events. This is all sudden onset. Last known well was at approximately noon. Limitations: no limitations Course Vital Signs 10/27/24 10/27/24 10/27/24 17:21 19:31 21:52 Temperature 98.1 F 97.9 F Pulse Rate 91 80 93 Respiratory 16 18 18 Rate Blood Pressure 131/81 152/104 122/76 O2 Sat by Pulse 98 99 98 Oximetry Medical Decision Making - Medical Decision Making Was pt. sent in by a medical professional or institution (, PA, TOY TRAINS AND ACCESSORIES SALESPERSON, urgent care, hospital, or care home...) When possible be specific @ -No Did you speak to anyone other than the patient for history (EMS, parent, family, police, friend...)? What history was obtained from this source @ -Spoke with patient's and [id number] who assisted with the past medical history as well as HPI. Did you review nursing and triage notes (agree or disagree)? Why? @ -I reviewed and agree with nursing and triage notes Were old charts reviewed (outside hosp., previous admission, EMS record, old EKG, old radiological studies, urgent care reports/EKG's, care home records)? Report findings @ -No old charts were reviewed Differential Diagnosis (chest pain, altered mental status, abdominal pain women, abdominal pain men, vaginal bleeding, weakness, fever, dyspnea, syncope, headache, dizziness, GI bleed, back pain, seizure, CVA, palpatations, mental health, musculoskeletal)? @ -Differential CVA Ischemic stroke, hemorrhagic stroke, brain tumor, atypical migraine, Wernicke's encephalopathy, seizure, multiple sclerosis, meningitis, encephalitis, hypoglycemia, Guillain-Croft, electrolytes disturbance, myasthenia gravis.... This is not meant to be an all-inclusive list EKG interpreted by me (3pts min.). @ -As above X-rays interpreted by me (1pt min.). @ -Chest x-ray reveals no obvious acute cardiopulmonary process. CT interpreted by me (1pt min.). @ -CT brain, CT angiogram head and neck negative for any obvious acute process. U/S interpreted by me (1pt. min.). @ -None done What testing was considered but not performed or refused? (CT, X-rays, U/S, labs)? Why? @ -None What meds were considered but not given or refused? Why? @ -Considered thrombolytic therapy with tenecteplase however patient is outside of the window, technically with an NIH of 0. Discussed this with Dr. Salazar of neurocritical care who is in agreement with this plan of patient not being a tenecteplase candidate. Did you discuss the management of the patient with other professionals (professionals i.e. , PA, TOY TRAINS AND ACCESSORIES SALESPERSON, lab, RT, psych nurse, executive secretary social welfare, police chief deputy, teacher, corporate security officer, embedded case manager)? Give summary @ -Discussed with Dr. Salazar of neuro crit care. Was in agreement with plan for code stroke activation as well as the patient not being a candidate for tenecteplase with his low NIH as well as patient having last known well greater than 4-1/2 hours prior to me evaluating him. Was in agreement with plan for admission and medical evaluation with negative workup. Discussed the case with the admitting provider, Dr. Boyd who accepted the admission. Was smoking cessation discussed for >3mins.? @ -No Was critical care preformed (if so, how long)? @ -Yes, 33 minutes. Were there social determinants of health that impacted care today? How? (Homelessness, low income, unemployed, alcoholism, drug addiction, transportation, low edu. Level, literacy, decrease access to med. care, snf, rehab)? @ -No Was there de-escalation of care discussed even if they declined (Discuss DNR or withdrawal of care, Hospice)? DNR status @ -No What co-morbidities impacted this encounter? (DM, HTN, Smoking, COPD, CAD, Cancer, CVA, ARF, Chemo, Hep., AIDS, mental health diagnosis, sleep apnea, m orbid obesity)? @ -Hyperlipidemia Was patient admitted / discharged? Hospital course, mention meds given and route, prescriptions, significant lab abnormalities, going to OR and other pertinent info. @ -Patient presents with short-term amnesia of sudden onset today. Concern is for possible CVA. NIH otherwise 0. Last known well is made to be 12:00 noon. Patient is outside of the window for tenecteplase and NIH is technically 0 at this time and therefore risks outweigh the benefits and patient will not be administered tenecteplase. However we will obtain stroke workup. Patient was made a code stroke. He was in agreement this plan. Discussed with Dr. Salazar of neuro [facility]. Was in agreement with plan for code stroke activation as well as the patient not being a candidate for tene cteplase with his low NIH as well as patient having last known well greater than 4-1/2 hours prior to me evaluating him. Was in agreement with plan for admission and medical evaluation with negative workup. CT imaging returned negative for any obvious acute process. Chest x-ray unremarkable. Laboratory studies otherwise unremarkable. Mild leukocytosis of 13 likely reactive. Creatinine kinase is slightly elevated to 503 but no evidence of rhabdomyolysis. On reevaluation, patient's amnesia is mildly improved but is still somewhat present. I discussed the results with the patient as well as family. Patient will be admitted for stroke evaluation. MRI ordered. Patient given 325 mg of aspirin and admitted to the hospital. I spoke with the admitting provider, Dr. Boyd of [facility] who accepted the admission. Undiagnosed new problem with uncertain prognosis? @ -No Drug Therapy requiring intensive monitoring for toxicity (Heparin, Nitro, Insulin, Cardizem)? @ -No Were any procedures done? @ -No Diagnosis/symptom? @ -Amnesia, concern for CVA Acute, or Chronic, or Acute on Chronic? @ -Acute Uncomplicated (without systemic symptoms) or Complicated (systemic symptoms)? @ -Complicated Side effects of treatment? @ -No Exacerbation, Progression, or Severe Exacerbation? @ -No Poses a threat to life or bodily function? How? (Chest pain, [place], [place], pneumonia, PE, COPD, DKA, ARF, appy, cholecystitis, CVA, Diverticulitis, Homicidal, Suicidal, threat to staff... and all critical care pts) @ -Yes - Lab Data Result diagrams: 10/27/24 17:55 10/27/24 17:55 Lab Results 10/27/24 10/27/24 10/27/24 Range/Units 17:45 17:55 17:55 WBC 13.0 H (3.8-10.6) k/uL RBC 4.94 (4.30-5.90) m/uL Hgb 14.6 (13.0-17.5) gm/dL Hct 43.2 (39.0-53.0) % MCV 87.4 (80.0-100.0) fL MCH 29.5 (25.0-35.0) pg MCHC 33.7 (31.0-37.0) g/dL RDW 12.7 (11.5-15.5) % Plt Count 186 (150-450) k/uL MPV 8.1 Neutrophils % 84 % Lymphocytes % 10 % Monocytes % 4 % Eosinophils % 0 % Basophils % 0 % Neutrophils # 10.9 H (1.3-7.7) k/uL Lymphocytes # 1.3 (1.0-4.8) k/uL Monocytes # 0.6 (0-1.0) k/uL Eosinophils # 0.1 (0-0.7) k/uL Basophils # 0.0 (0-0.2) k/uL PT 10.6 (10.0-12.5) sec INR 1.0 (<1.2) APTT 21.7 L (22.0-30.0) sec Sodium (137-145) mmol/L Potassium (3.5-5.1) mmol/L Chloride (98-107) mmol/L Carbon Dioxide (22-30) mmol/L Anion Gap mmol/L BUN (9-20) mg/dL Creatinine (0.66-1.25) mg/dL Est GFR (CKD-EPI)AfAm (>60 ml/min/1.73 sqM) Est GFR (CKD-EPI)NonAf (>60 ml/min/1.73 sqM) Glucose (74-99) mg/dL POC Glucose (mg/dL) 123 H (70-110) mg/dL POC Glu Marketing Data Specialist ID Diego Kami Calcium (8.4-10.2) mg/dL Total Bilirubin (0.2-1.3) mg/dL AST (17-59) U/L ALT (4-49) U/L Alkaline Phosphatase (38-126) U/L Creatine Kinase (55-170) U/L Troponin I (0.000-0.034) ng/mL Total Protein (6.3-8.2) g/dL Albumin (3.5-5.0) g/dL Urine Color Urine Appearance (Clear) Urine pH (5.0-8.0) Ur Specific [place] (1.001-1.035) Urine Protein (Negative) Urine Glucose (UA) (Negative) Urine Ketones (Negative) Urine Blood (Negative) Urine Nitrite (Negative) Urine Bilirubin (Negative) Urine Urobilinogen (<2.0) mg/dL Ur Leukocyte Esterase (Negative) Urine Opiates Screen (NotDetected) Ur Oxycodone Screen (NotDetected) Urine Methadone Screen (NotDetected) Ur Barbiturates Screen (NotDetected) U Tricyclic Antidepress (NotDetected) Ur Phencyclidine Scrn (NotDetected) Ur Amphetamines Screen (NotDetected) U Methamphetamines Scrn (NotDetected) U Benzodiazepines Scrn (NotDetected) Urine Cocaine Screen (NotDetected) U Marijuana (THC) Screen (NotDetected) Influenza Type A (PCR) (Not Detectd) Influenza Type B (PCR) (Not Detectd) RSV (PCR) (Not Detectd) SARS-CoV-2 (PCR) (Not Detectd) 10/27/24 10/27/24 10/27/24 Range/Units 17:55 17:55 18:08 WBC (3.8-10.6) k/uL RBC (4.30-5.90) m/uL Hgb (13.0-17.5) gm/dL Hct (39.0-53.0) % MCV (80.0-100.0) fL MCH (25.0-35.0) pg MCHC (31.0-37.0) g/dL RDW (11.5-15.5) % Plt Count (150-450) k/uL MPV Neutrophils % % Lymphocytes % % Monocytes % % Eosinophils % % Basophils % % Neutrophils # (1.3-7.7) k/uL Lymphocytes # (1.0-4.8) k/uL Monocytes # (0-1.0) k/uL Eosinophils # (0-0.7) k/uL Basophils # (0-0.2) k/uL PT (10.0-12.5) sec INR (<1.2) APTT (22.0-30.0) sec Sodium 138 (137-145) mmol/L Potassium 4.1 (3.5-5.1) mmol/L Chloride 104 (98-107) mmol/L Carbon Dioxide 25 (22-30) mmol/L Anion Gap 9 mmol/L BUN 20 (9-20) mg/dL Creatinine 0.99 (0.66-1.25) mg/dL Est GFR (CKD-EPI)AfAm >90 (>60 ml/min/1.73 sqM) Est GFR (CKD-EPI)NonAf 78 (>60 ml/min/1.73 sqM) Glucose 117 H (74-99) mg/dL POC Glucose (mg/dL) (70-110) mg/dL POC Glu Marketing Data Specialist ID Calcium 9.6 (8.4-10.2) mg/dL Total Bilirubin 0.7 (0.2-1.3) mg/dL AST 44 (17-59) U/L ALT 35 (4-49) U/L Alkaline Phosphatase 85 (38-126) U/L Creatine Kinase 503 H (55-170) U/L Troponin I <0.012 (0.000-0.034) ng/mL Total Protein 6.6 (6.3-8.2) g/dL Albumin 4.6 (3.5-5.0) g/dL Urine Color Urine Appearance (Clear) Urine pH (5.0-8.0) Ur Specific [place] (1.001-1.035) Urine Protein (Negative) Urine Glucose (UA) (Negative) Urine Ketones (Negative) Urine Blood (Negative) Urine Nitrite (Negative) Urine Bilirubin (Negative) Urine Urobilinogen (<2.0) mg/dL Ur Leukocyte Esterase (Negative) Urine Opiates Screen (NotDetected) Ur Oxycodone Screen (NotDetected) Urine Methadone Screen (NotDetected) Ur Barbiturates Screen (NotDetected) U Tricyclic Antidepress (NotDetected) Ur Phencyclidine Scrn (NotDetected) Ur Amphetamines Screen (NotDetected) U Methamphetamines Scrn (NotDetected) U Benzodiazepines Scrn (NotDetected) Urine Cocaine Screen (NotDetected) U Marijuana (THC) Screen (NotDetected) Influenza Type A (PCR) Not Detected (Not Detectd) Influenza Type B (PCR) Not Detected (Not Detectd) RSV (PCR) Not Detected (Not Detectd) SARS-CoV-2 (PCR) Not Detected (Not Detectd) 10/27/24 Range/Units 19:39 WBC (3.8-10.6) k/uL RBC (4.30-5.90) m/uL Hgb (13.0-17.5) gm/dL Hct (39.0-53.0) % MCV (80.0-100.0) fL MCH (25.0-35.0) pg MCHC (31.0-37.0) g/dL RDW (11.5-15.5) % Plt Count (150-450) k/uL MPV Neutrophils % % Lymphocytes % % Monocytes % % Eosinophils % % Basophils % % Neutrophils # (1.3-7.7) k/uL Lymphocytes # (1.0-4.8) k/uL Monocytes # (0-1.0) k/uL Eosinophils # (0-0.7) k/uL Basophils # (0-0.2) k/uL PT (10.0-12.5) sec INR (<1.2) APTT (22.0-30.0) sec Sodium (137-145) mmol/L Potassium (3.5-5.1) mmol/L Chloride (98-107) mmol/L Carbon Dioxide (22-30) mmol/L Anion Gap mmol/L BUN (9-20) mg/dL Creatinine (0.66-1.25) mg/dL Est GFR (CKD-EPI)AfAm (>60 ml/min/1.73 sqM) Est GFR (CKD-EPI)NonAf (>60 ml/min/1.73 sqM) Glucose (74-99) mg/dL POC Glucose (mg/dL) (70-110) mg/dL POC Glu Marketing Data Specialist ID Calcium (8.4-10.2) mg/dL Total Bilirubin (0.2-1.3) mg/dL AST (17-59) U/L ALT (4-49) U/L Alkaline Phosphatase (38-126) U/L Creatine Kinase (55-170) U/L Troponin I (0.000-0.034) ng/mL Total Protein (6.3-8.2) g/dL Albumin (3.5-5.0) g/dL Urine Color Colorless Urine Appearance Clear (Clear) Urine pH 6.0 (5.0-8.0) Ur Specific [place] 1.028 (1.001-1.035) Urine Protein Negative (Negative) Urine Glucose (UA) Negative (Negative) Urine Ketones Negative (Negative) Urine Blood Negative (Negative) Urine Nitrite Negative (Negative) Urine Bilirubin Negative (Negative) Urine Urobilinogen <2.0 (<2.0) mg/dL Ur Leukocyte Esterase Negative (Negative) Urine Opiates Screen Not Detected (NotDetected) Ur Oxycodone Screen Not Detected (NotDetected) Urine Methadone Screen Not Detected (NotDetected) Ur Barbiturates Screen Not Detected (NotDetected) U Tricyclic Antidepress Not Detected (NotDetected) Ur Phencyclidine Scrn Not Detected (NotDetected) Ur Amphetamines Screen Not Detected (NotDetected) U Methamphetamines Scrn Not Detected (NotDetected) U Benzodiazepines Scrn Not Detected (NotDetected) Urine Cocaine Screen Not Detected (NotDetected) U Marijuana (THC) Screen Not Detected (NotDetected) Influenza Type A (PCR) (Not Detectd) Influenza Type B (PCR) (Not Detectd) RSV (PCR) (Not Detectd) SARS-CoV-2 (PCR) (Not Detectd) - EKG Data -: EKG Interpreted by Me EKG Comments: 12-lead Electrocardiogram Interpretation Note EKG was reviewed and interpreted by myself. 12-lead ECG performed at 1744 is interpreted by me as revealing normal sinus rhythm at a rate of 92 beats per minute. Left axis deviation. MI interval is 164 ms, QRS duration is 94 ms, QTc is 419 ms.. There were no ST or T wave abnormalities to suggest myocardial ischemia or injury. R wave progression across the precordium was satisfactory. By my interpretation this EKG is non-diagnostic for acute ischemia. Critical Care Time Critical Care Time: Yes Total Critical Care Time: 33 Disposition Clinical Impression: CVA (cerebral vascular accident), Amnesia Disposition: ADMITTED IP TO THIS HOSP Condition: Serious Time of Disposition: 20:30
--- NOTE | 2024-10-28 00:58 | P.HPIM ---
History of Present Illness H&P Date: 10/28/24 Patient is a 69-year-old male with PMH of hyperlipidemia who presents to the emergency room for altered mental status. The patient is accompanied by his sister and . Patient notes that he was in his usual state of health until around noon today when he felt fatigued and fell asleep on the couch at around 2 PM. He woke up at around 4 PM feeling confused and disoriented. He called his who noticed that he was not acting quite like himself and was forgetful. The patient was also not able to remember the details of her recent trip to [place]. The family subsequently decided to bring the patient to the emergency room. Patient notes that he feels at his baseline at the time of interview but is unable to recall the events of the morning. He reports no prior history of such symptoms. Denied experiencing visual disturbances, focal weakness, numbness, tingling, or headaches. Denied chest pain, shortness of breath, fever, chills, cough, nausea, vomiting, abdominal pain, diarrhea. In the emergency room a CT brain was unremarkable with CT angiogram head and neck also unremarkable. EKG revealed sinus rhythm at 92 bpm with left axis deviation with no ST/T wave changes noted as reviewed by me. Chest x-ray was unremarkable. Laboratory evaluation revealed leukocytosis of 13.0 with glucose 117, creatinine kinase 503, troponin less than 0.012, with UA and urine toxicology negative with respiratory viral panel unremarkable. ED documentation reviewed and case discussed with ED provider. Review of systems: Pertinent positives and negatives as discussed in HPI, a complete review of systems was performed and all other systems are negative. Physical examination: Vital signs reviewed General: non toxic, no distress, appears at stated age, normal weight Derm: no unusual rashes/lesions, warm Head: atraumatic, normocephalic, symmetric Eyes: EOMI, no lid lag, anicteric sclera, pupils equal round reactive to light ENT: Nose and ears atraumatic Neck: No cervical lymphadenopathy, trachea midline, supple Mouth: no lip lesion, mucus membranes moist Cardiovascular: S1S2 reg, no murmur, positive dorsalis pedis pulse bilateral, no edema Lungs: CTA bilateral, no rhonchi, no rales, no accessory muscle use Abdominal: soft, nontender to palpation, no guarding Ext: muscle strength 5 out of 5 in all 4 extremities grossly, no gross muscle atrophy, no contractures, Neuro: CN II-XI grossly intact, no gross focal neuro deficits Psych: Alert, oriented, appropriate affect Assessment: Altered mental status, rule out TIA Elevated creatinine kinase Leukocytosis Chronic conditions: Hyperlipidemia Imaging: In the emergency room a CT brain was unremarkable with CT angiogram head and neck also unremarkable. EKG revealed sinus rhythm at 92 bpm with left axis deviation with no ST/T wave changes noted as reviewed by me. Chest x-ray was unremarkable. Data Review: Laboratory evaluation revealed leukocytosis of 13.0 with glucose 117, creatinine kinase 503, troponin less than 0.012, with UA and urine toxicology negative with respiratory viral panel unremarkable. Plan: Neurology consulted Cardiac monitoring Neurochecks Obtain echocardiogram PT and AUTOMOTIVE PRODUCTION WORKER consulted Monitor CBC and CK Continue with IV fluids normal saline 130 mL/h Continue with aspirin and statin Of note, code stroke activated in ER and case discussed with neurointensivist with patient deemed to not be a candidate for tenecteplase DVT prophylaxis: Lovenox Subq The patient is admitted with an anticipated less than 2 midnight stay for evaluation of TIA CODE STATUS: Full Code Discussed with: Patient Anticipated discharge place: Home Past Medical History Past Medical History: Hyperlipidemia History of Any Multi-Drug Resistant Organisms: None Reported Past Surgical History: Appendectomy, Back Surgery, Hernia Repair, Tonsillectomy Past Psychological History: No Psychological Hx Reported Smoking Status: Never smoker Past Alcohol Use History: Occasional Past Drug Use History: None Reported Medications and Allergies Home Medications Medication Instructions Recorded Confirmed Type Simvastatin [Zocor] 20 mg PO HS 12/25/22 10/27/24 History Calcium Chew(Unknown Dose) 1 tab PO DAILY 10/27/24 10/27/24 History Co Q-10(Unknown Dose) 1 tab PO DAILY 10/27/24 10/27/24 History Memory Supplement(Unknown) 1 tab PO DAILY 10/27/24 10/27/24 History [place] 3-6-9(Unknown Dose) 1 cap PO DAILY 10/27/24 10/27/24 History Total Beets 1 tab PO DAILY 10/27/24 10/27/24 History Turmeric(Unknown Dose) 1 tab PO DAILY 10/27/24 10/27/24 History Vitamin E(Unknown Dose) 1 cap PO DAILY 10/27/24 10/27/24 History Allergies Allergy/AdvReac Type Severity Reaction Status Date / Time No Known Allergies Allergy Verified 10/27/24 19:59 Physical Exam Vitals: Vital Signs Temp Pulse Resp BP Pulse Ox 10/27/24 21:52 93 18 122/76 98 10/27/24 19:31 97.9 F 80 18 152/104 99 10/27/24 17:21 98.1 F 91 16 131/81 98 Intake and Output 10/27/24 10/27/24 10/28/24 14:59 22:59 06:59 Other: Weight 78.018 kg Results CBC & Chem 7: 10/27/24 17:55 10/27/24 17:55 Labs: Abnormal Lab Results - Last 24 Hours (Table) 10/27/24 10/27/24 10/27/24 Range/Units 17:45 17:55 17:55 WBC 13.0 H (3.8-10.6) k/uL Neutrophils # 10.9 H (1.3-7.7) k/uL APTT 21.7 L (22.0-30.0) sec Glucose (74-99) mg/dL POC Glucose (mg/dL) 123 H (70-110) mg/dL Creatine Kinase (55-170) U/L 10/27/24 Range/Units 17:55 WBC (3.8-10.6) k/uL Neutrophils # (1.3-7.7) k/uL APTT (22.0-30.0) sec Glucose 117 H (74-99) mg/dL POC Glucose (mg/dL) (70-110) mg/dL Creatine Kinase 503 H (55-170) U/L
[2024-10-28] MEDS: ATORVASTATIN 80 MG TAB PO SCH (03:24)
[2024-10-28] MEDS: ACETAMINOPHEN TAB 325 MG TAB PO PRN (03:24)
[2024-10-28 08:55] LABS: HCT 38.7 % (39.0-53.0); HGB 13.1 gm/dL (13.0-17.5); MCH 30.1 pg (25.0-35.0); MCHC 33.9 g/dL (31.0-37.0); MCV 88.8 fL (80.0-100.0); Mean Platelet Volume 8.2; Platelet Count 167 k/uL (150-450); RBC 4.36 m/uL (4.30-5.90); RDW 12.9 % (11.5-15.5); WBC 7.3 k/uL (3.8-10.6)
[2024-10-28 09:18] LABS: Creatine Kinase 293 U/L (55-170)
--- NOTE | 2024-10-28 11:06 | MR ---
INDICATION: Patient age:Male; 69 years old; Reason for study: Neuro deficit, acute, stroke suspected; PHH. COMPARISON: CT brain 10/27/2024, 09/04/2019, CT head and neck 10/27/2024. TECHNIQUE: Multi planar, multi sequence imaging was performed through the brain without the administr ation of intravenous contrast. FINDINGS: The nicolas-white junctions, ventricular system, basal cisterns appear unremarkable. Age-appropriate cer ebral parenchymal volume. Diffusion-weighted imaging shows no evidence of restricted diffusion to sug gest acute/subacute infarct. Intracranial arterial flow voids are maintained. Midline structures show no abnormality. Patchy areas of high T2/FLAIR signal intensity are seen within the supratentorial pe riventricular and subcortical white matter. The susceptibility weighted images do not reveal any evid ence for micro-hemorrhage. The bone marrow signal is within normal limits. The globes are unremarkable. Minimal mucosal thicken ing in the bilateral posterior ethmoid sinuses. Left maxillary sinus 1 cm mucous retention cyst. The remaining paranasal sinuses are unremarkable. IMPRESSION: 1. No evidence of intracranial mass or acute/subacute infarct. 2. Mild nonspecific white matter changes, likely related to small vessel ischemic disease. [facility], , 10/28/2024 11:04 AM
[2024-10-28] MEDS: ENOXAPARIN 40 MG/0.4 ML SYRINGE SQ SCH (11:37)
[2024-10-28] MEDS: ASPIRIN 81 MG PO SCH (11:37)
[2024-10-28 14:53] LABS: Chol/HDL Ratio 4.82 Ratio; LDL Cholesterol,Calculated 99.3 mg/dL (0.0-131.0)
--- NOTE | 2024-10-28 16:23 | P.CNNES ---
History of Present Illness Consult date: 10/28/24 Requesting physician: Jonh Pan Reason for Consult: cva, amnesia, code stroke History of Present Illness: This is a 69 year-old gentleman who presents to the emergency department because of passing out. He is accompanied with his . He stated yesterday 2pm sat on the recliner chair and then when he woke-up around 4ish pm he was confused and did not know where his even though she notified where she was going. He did not know what the Camper was doing in his drive way even though he just got back from [place] using the Camper. His stated he was repeating question to her. He denies urinary or bowel incontinence or tongue bite. He has mild headache 3/10 over bilateral frontal region. No vomiting. Stated it was mild headache. Per he has passing out for 20 years and it seems it is short lasting, for few seconds without post-ictal state urinary or bowel incontinence. No history of seizure or stroke. Some of the work-up during this hospital visit consisted of: I reviewed the lab work-up. CT head is negative for acute intracranial hemorrhage or midline shift. I personally reviewed CT and agree with report. CTA head and neck: No evidence of dissection or cervical internal carotid arteries or vertebral arterities. No evidence of significant stenosis at carotid bifurcation. No evidence of intracranial large vessel occlusion or intracranial aneurysm. MRI Brain: No evidence of intracranial mass or acute/subacute infarct. Review of Systems As per HPI. Past Medical History Past Medical History: Hyperlipidemia Additional Past Medical History / Comment(s): Syncope History of Any Multi-Drug Resistant Organisms: None Reported Past Surgical History: Appendectomy, Back Surgery, Hernia Repair, Tonsillectomy Past Anesthesia/Blood Transfusion Reactions: No Reported Reaction Past Psychological History: No Psychological Hx Reported Smoking Status: Never smoker Past Alcohol Use History: Occasional Past Drug Use History: None Reported Medications and Allergies Home Medications Medication Instructions Recorded Confirmed Type Simvastatin [Zocor] 20 mg PO HS 12/25/22 10/27/24 History Calcium Chew(Unknown Dose) 1 tab PO DAILY 10/27/24 10/27/24 History Co Q-10(Unknown Dose) 1 tab PO DAILY 10/27/24 10/27/24 History Memory Supplement(Unknown) 1 tab PO DAILY 10/27/24 10/27/24 History [place] 3-6-9(Unknown Dose) 1 cap PO DAILY 10/27/24 10/27/24 History Total Beets 1 tab PO DAILY 10/27/24 10/27/24 History Turmeric(Unknown Dose) 1 tab PO DAILY 10/27/24 10/27/24 History Vitamin E(Unknown Dose) 1 cap PO DAILY 10/27/24 10/27/24 History Allergies Allergy/AdvReac Type Severity Reaction Status Date / Time No Known Allergies Allergy Verified 10/27/24 19:59 Physical Examination - Vital Signs Vital Signs: Vital Signs Temp Pulse Pulse Resp BP BP BP 10/28/24 12:15 97.4 F L 80 15 138/88 10/28/24 08:55 98.0 F 80 14 122/78 10/28/24 03:28 72 18 134/82 10/28/24 02:00 97.6 F 58 L 18 136/80 10/28/24 01:35 98.7 F 69 18 110/65 10/27/24 21:52 93 18 122/76 10/27/24 19:31 97.9 F 80 18 152/104 10/27/24 17:21 98.1 F 91 16 131/81 Pulse Ox 10/28/24 12:15 99 10/28/24 08:55 95 10/28/24 03:28 98 10/28/24 02:00 97 10/28/24 01:35 95 10/27/24 21:52 98 10/27/24 19:31 99 10/27/24 17:21 98 Intake and Output 10/28/24 10/28/24 10/28/24 06:59 14:59 22:59 Intake Total 720 Balance 720 Intake: Oral 720 Other: Voiding Method Toilet # Voids 2 Weight 78 kg GENERAL: The patient is lying in bed and is not in acute distress. NEUROLOGICAL: Higher mental function: The patient is awake, alert, oriented to self, place and time. Patient is following commands. No aphasia and no neglect. Cranial nerves: The pupils are round, equal and reactive to light and accommod ation. Visual velasco are full to confrontation throughout. Extraocular movement is intact no nystagmus is noted. Facial sensation is normal to touch throughout. The facial strength is normal throughout. Hearing is normal bilaterally to hand rub. Tongue is midline and moved tefj-rj-[id number] without any difficulty. No dysarthria is noted. Shoulder shrug is normal bilaterally. Motor: The strength is 5 over 5 throughout. Normal tone and bulk. Cerebellum: Normal finger to nose heel to marte bilaterally. Sensation: Sensation is normal to touch throughout. Plantars are downgoing bilaterally. Results - Laboratory Findings CBC and BMP: 10/28/24 08:18 10/27/24 17:55 Abnormal Lab Findings: Abnormal Labs 10/27/24 10/27/24 10/27/24 17:45 17:55 17:55 WBC 13.0 H Hct Neutrophils # 10.9 H APTT 21.7 L Glucose POC Glucose (mg/dL) 123 H Creatine Kinase Triglycerides HDL Cholesterol 10/27/24 10/28/24 10/28/24 17:55 08:18 08:18 WBC Hct 38.7 L Neutrophils # APTT Glucose 117 H POC Glucose (mg/dL) Creatine Kinase 503 H 293 H Triglycerides 177.00 H HDL Cholesterol 35.30 L Assessment and Plan Assessment: This is a 69-year-old gentleman who had episode of confusion upon waking up from a nap yesterday in the afternoon. He did not recall where his was what the camper was doing outside and was repeating the same questions. He had episode of syncopal episodes for the last 20 years lasting for few seconds. Transient Global Amenesia---Unknown exact cause. MRI Brain and EEG are normal. History of recurrent syncopal episodes for the past 20 years lasting few seconds. Those do not seem typical seizure. Plan: Highly recommend a loop recorder to capture the episodes especially since she had a event monitor in the past for only 30 days and he never had an event when he had the monitor. The loop recorder can be functional over the next 2 to 3 years and hopefully if there is an event this can be interrogated to assess whether this is truly cardiac in origin. I recommend an outpatient long-term EEG as an outpatient to capture his episodes. This should be included by his PCP as well as outpatient neurologist Seizure precautions seizure pads Because of the syncopal episodes even though they are not true seizures, avoid driving for 6 months until no further episodes, avoid heights, avoid swimming assisted or using heavy machinery Will defer the rest of the medical management to primary and other specialist Plan discussed with the patient, his was at bedside and the primary team Thank for the consultation Time with Patient: Greater than 30
--- NOTE | 2024-10-28 17:41 | CA ---
Transthoracic Echo Report Name: Lisandro Carter Age: 69 Gender: M : 1955 Exam Date: 10/28/2024 14:00 Exam Location: [facility] Ht (in): 69 Wt (lb): 172 Ordering Physician: Diane Boyd MD Attending/Referring Phys: Managed Care Specialist Verna Kumari RDCS Procedure CPT: Indications: tia Cardiac Hx: Technical Quality: Good Contrast 1: Total Dose (mL): Contrast 2: Total Dose (mL): MEASUREMENTS (Male / Female) Normal Values 2D ECHO LV Diastolic Diameter PLAX 4.0 cm 4.2 - 5.9 / 3.9 - 5.3 cm LV Systolic Diameter PLAX 1.9 cm IVS Diastolic Thickness 0.9 cm 0.6 - 1.0 / 0.6 - 0.9 cm LVPW Diastolic Thickness 0.8 cm 0.6 - 1.0 / 0.6 - 0.9 cm LV Relative Wall Thickness 0.4 RV Internal Dim ED PLAX 3.6 cm LVOT Diameter 2.1 cm LA Systolic Diameter LX 2.8 cm 3.0 - 4.0 / 2.7 - 3.8 cm LV Diastolic Volume MOD BP 108.7 cm??? 67 - 155 / 56 - 104 cm??? LV Systolic Volume MOD BP 50.1 cm??? 22 - 58 / 19 - 49 cm??? LV Ejection Fraction MOD BP 54.0 % >= 55 % LV Cardiac Index MOD BP 1827.9 cm???/min???m??? LV Diastolic Volume MOD 4C 114.4 cm??? LV Systolic Volume MOD 4C 47.0 cm??? LV Ejection Fraction MOD 4C 58.9 % LV Cardiac Index MOD 4C 2099.8 cm???/min???m??? LV Diastolic Length 4C 8.7 cm LV Systolic Length 4C 7.1 cm LV Diastolic Volume MOD 2C 82.6 cm??? LV Systolic Volume MOD 2C 35.2 cm??? LV Ejection Fraction MOD 2C 57.4 % LV Cardiac Index MOD 2C 1477.8 cm???/min???m??? LV Diastolic Length 2C 8.2 cm LV Systolic Length 2C 6.6 cm LA Volume 47.0 cm??? 18 - 58 / 22 - 52 cm??? LA Volume Index 24.0 cm???/m??? 16 - 28 cm???/m??? DOPPLER AV Peak Velocity 122.4 cm/s AV Peak Gradient 6.0 mmHg AV Mean Velocity 91.3 cm/s AV Mean Gradient 3.6 mmHg AV Velocity Time Integral 27.5 cm MV Area PHT 3.7 cm??? Mitral E Point Velocity 86.1 cm/s Mitral A Point Velocity 87.2 cm/s Mitral E to A Ratio 1.0 MV Deceleration Time 206.0 ms FINDINGS Left Ventricle left ventricular ejection fraction is estimated at 60-65%. Normal Left ventricular size, wall thickness, systolic function with no obvious regional wall motion abnormalities. Right Ventricle Mild right ventricular dilatation. Normal right ventricul function. Unable to estimate the right ventricular systolic pressure. Right Atrium Normal right atrial size. Left Atrium Normal left atrial size. Mitral Valve Mitral valve thickened. No mitral stenosis. Trace mitral regurgitation. Aortic Valve Trileaflet aortic valve. No aortic stenosis. No aortic regurgitation. Tricuspid Valve Structurally normal tricuspid valve. No tricuspid stenosis. No tricuspid regurgitation. Pulmonic Valve Structurally normal pulmonic valve. No pulmonic stenosis. No pulmonic regurgitation. Pericardium No pericardial effusion. No pleural effusion. Aorta Normal size aortic root and proximal ascending aorta. CONCLUSIONS Normal LV function Consider transesophageal echo to definitively rule out cardiac source for thromboembolic CVA Previewed by: Dr. Harshil Baron MD (Electronically Signed) Final Date: 28 October 2024 17:39
--- NOTE | 2024-10-28 21:30 | EEG ---
ELECTROENCEPHALOGRAM REPORT CLINICAL HISTORY: This is a 69-year-old gentleman with an episode of confusion. Video EEG is obtained to evaluate for seizure epileptiform activity. RELEVANT MEDICATION: The patient is not on any antiseizure medication. EEG TYPE: This is a routine 21-channel EEG with video using the 10/20 electrode placement system. DESCRIPTION: Wakefulness and drowsiness. During the awake state, the posterior-dominant rhythm consists of [id number]-qs-[id number] voltage of 9 to 9.5 Hz activity that is well modulated and well sustained. There is no physiological stage 2 sleep architecture. There is no focal slowing. There is no physiological stage 2 sleep architecture. Interictal and ictal is none. ACTIVATION PROCEDURE: Photic stimulation did not evoke a posterior driving response. There is no abnormality during the photic stimulation. Hyperventilation is not performed. CLINICAL INTERPRETATION: This is a normal routine EEG during the awake and drowsy state. There is no focal slowing, epileptiform discharge, or seizure on the EEG. A normal routine EEG does not rule out underlying epilepsy. Clinical correlation is recommended. TIGRE / CARRIE: [id number] /
[2024-10-29 07:38] VITALS: RESP 14
[2024-10-29 11:43] VITALS: BP 127/87; TEMP 97.4
--- NOTE | 2024-10-29 12:27 | P.DS ---
Providers Date of admission: 10/27/24 21:07 Expected date of discharge: 10/29/24 Attending physician: Diane Boyd MD Consults: 10/27/24 21:07 Consult Physician Routine Consulting Provider: Andrea Chung Consult Reason/Comments: cva, amnesia. code stroke Do you want consulting provider notified?: Yes [facility] Course: Discharge Diagnosis: Transient global amnesia Recurrent syncope Elevated creatinine kinase Leukocytosis, reactive Hospital Course: 69-year-old male with PMH of hyperlipidemia who presents to the emergency room for altered mental status. In the emergency room a CT brain was unremarkable with CT angiogram head and neck also unremarkable. EKG revealed sinus rhythm at 92 bpm with left axis deviation with no ST/T wave changes noted as reviewed by me. Chest x-ray was unremarkable. Laboratory evaluation revealed leukocytosis of 13.0 with glucose 117, creatinine kinase 503, troponin less than 0.012, with UA and urine toxicology negative with respiratory viral panel unremarkable. Patient has had multiple episodes of syncope. He also had event monitor for 30 days which was unrevealing. EEG was negative. MRI did not show any acute process. Echocardiogram showed normal LV function. Patient being discharged home with close follow-up with PCP, neurology and cardiology. He may need a loop recorder. Asymptomatic at the time of discharge. Patient seen and examined at bedside. Vital signs reviewed and stable. General: Nontoxic, no distress, appears at stated age Derm: Warm, dry Head: Atraumatic, normocephalic, symmetric Eyes: EOMI, no lid lag, anicteric sclera Mouth: No lip lesion, mucus membranes moist Cardiovascular: S1S2 reg, no murmur Lungs: CTA bilateral, no rhonchi, no rales, no accessory muscle use Abdominal: Soft, nontender to palpation, no guarding, no appreciable organomegaly Ext: No gross muscle atrophy, no edema, no contractures Neuro: CN II-XI grossly intact, no focal neuro deficits Psych: Alert, oriented, appropriate affect A total of 36 minutes of time were spent preparing this complex discharge summary. Patient was discharged on 10/29/2024 at 1029. Patient Condition at Discharge: Stable Plan - Discharge Summary Discharge Rx Participant: Yes New Discharge Prescriptions: New Aspirin 81 mg PO DAILY #90 tab Continue Simvastatin [Zocor] 20 mg PO HS [place] 3-6-9(Unknown Dose) 1 cap PO DAILY Turmeric(Unknown Dose) 1 tab PO DAILY Total Beets 1 tab PO DAILY Co Q-10(Unknown Dose) 1 tab PO DAILY Calcium Chew(Unknown Dose) 1 tab PO DAILY Memory Supplement(Unknown) 1 tab PO DAILY Vitamin E(Unknown Dose) 1 cap PO DAILY Discharge Medication List Simvastatin [Zocor] 20 mg PO HS 12/25/22 [History] Calcium Chew(Unknown Dose) 1 tab PO DAILY 10/27/24 [History] Co Q-10(Unknown Dose) 1 tab PO DAILY 10/27/24 [History] Memory Supplement(Unknown) 1 tab PO DAILY 10/27/24 [History] [place] 3-6-9(Unknown Dose) 1 cap PO DAILY 10/27/24 [History] Total Beets 1 tab PO DAILY 10/27/24 [History] Turmeric(Unknown Dose) 1 tab PO DAILY 10/27/24 [History] Vitamin E(Unknown Dose) 1 cap PO DAILY 10/27/24 [History] Aspirin 81 mg PO DAILY #90 tab 10/29/24 [Rx] Follow up Appointment(s)/Referral(s): Mariama Sosa MD [REFERRING] - 1 Week (Neurology. The office will call you with apopintment date and time.) Elder Foley MD [STAFF PHYSICIAN] - 11/05/24 3:15 pm (Cardiology) Nicolás Ramirez DO [Primary Care Provider] - 1-2 days Patient Instructions/Handouts: Transient Global Amnesia (GEN) Activity/Diet/Wound Care/Special Instructions: Please see PCP. Also see neurology and cardiology. You will need likely retirement EEG monitoring and also possibly a loop recorder. NO DRIVING FOR 6 MONTHS or until cleared by Dr. Sosa. Discharge Disposition: HOME SELF-CARE
[2024-10-29 13:27] VITALS: PULSE 69
--- NOTE | 2024-11-03 10:06 | CDI ---
Documentation Clarification Form Date: 11/03/2024 09:35:00 AM From: Thania Johnson RN, CCDS Email: [email or web address] Admit Date: 10/27/2024 09:07:00 PM Patient Name: Lisandro Carter Visit Number: [id number] Discharge Date: 10/29/2024 01:32:00 PM ATTENTION: The Clinical Documentation Specialists (CDI) and [facility] Coding Staff appreciate your assistance in clarifying documentation. Please respond to the clarification below the line at the bottom and electronically sign. The CDI & [facility] Coding staff will review the response and follow-up if needed. Please note: Queries are made part of the Legal Health Record. If you have any questions, please contact the author of this message via ITS. Doctor Andi Ayala Elevated creatinine kinase is documented in the H&P and discharge summary. Additional clarification is requested. History/Risk Factors: History of hyperlipidemia. Per ED note: "Presented having issues with memory. Cannot recall recent events over the last couple days. Before this afternoon he could do so. Is having some amnesia with short-term events. This is all sudden onset. Last known well was at approximately noon." Clinical Indicators: ED: "On reevaluation, patient's amnesia is mildly improved but is still somewhat present." H&P: "Patient notes that he was in his usual state of health until around noon today when he felt fatigued and fell asleep on the couch at around 2 PM. He woke up at around 4 PM feeling confused and disoriented. Altered mental status, rule out TIA. Elevated creatinine kinase. White count improved, CK downtrending." 10/27-10/28 Labs: CK 503-293 Treatment: 1L 0.9 NS IV bolus x1 on 10/27; IVF's 0.9 NS @ 130mL/hr Please clarify if there is an additional diagnosis: [x ] Rhabdomyolysis [ ] No additional diagnosis [ ] Other, please specify [ ] Unable to Determine MTDD
== END 2024-10-29 13:32 | disposition home or self-care (01) | DRG 71 ==
LOC: EC 17:16 → 3SCARD 21:07
PROVIDERS: ADMIT Internal Medicine; ATTEND Internal Medicine
PROC: 4A10X4Z Monitoring of Central Nervous Electrical Activity, External Approach (ICD-10-PCS; principal; 2024-10-28)
DX: G45.4 Transient global amnesia (principal); M62.82 Rhabdomyolysis; D72.829 Elevated white blood cell count, unspecified; E78.5 Hyperlipidemia, unspecified; Z11.52 Encounter for screening for COVID-19; R79.89 Other specified abnormal findings of blood chemistry; Z87.19 Personal history of other diseases of the digestive system
CPT/HCPCS: 36415; 70450; 70496; 70498; 70551; 71046; 80053; 80061; 80306; 81003; 82550; 84484; 85025; 85027; 85610; 85730; 87636; 93005; 93306; 95816; 96360; 96361; 99291

== ENCOUNTER 2024-11-29 06:19 | Day surgery (SDC) | payer MEDICARE ==
[2024-11-24 16:14] VITALS: BMI 25.8
[2024-11-29] MEDS: IV FLUID CONTINUATION 1,000 ML IV ONE (06:50)
[2024-11-29 06:53] VITALS: RESP 16; TEMP 97.5
[2024-11-29] MEDS ORDERED: SODIUM CHLORIDE 0.9% 1,000 ML IV SCH (07:00)
[2024-11-29] MEDS: BENZOCAINE SPRAY 1 EACH MUCOUS MEM ONE (07:31)
[2024-11-29] MEDS: fentaNYL (PF) 50 MCG/ML 2 ML AMP IVP ONE (07:32)
[2024-11-29] MEDS: MIDAZOLAM 2 MG/2 ML VIAL IVP ONE (07:32)
[2024-11-29 08:35] VITALS: PULSE 66
[2024-11-29 09:03] VITALS: BP 126/74
--- NOTE | 2024-11-29 09:12 | ECHOT ---
TRANSESOPHAGEAL ECHOCARDIOGRAM INDICATION: TIA, rule out cardiac source of thromboembolic phenomenon. PROCEDURE NOTE: After obtaining informed consent, transesophageal echocardiogram was performed in left lateral position using an Omniplane probe. Local and IV sedation were obtained using Xylocaine spray, 2 mg of Versed, and 25 mcg of fentanyl. The patient tolerated the procedure well without any obvious immediate complications. Total sedation time was 4 minutes. FINDINGS: 1. There is no intracardiac thrombus within the left atrial appendage, left atrium, right atrium, right ventricle, or left ventricle. 2. There is no evidence of [id number]-[id number] shunt by color-flow Doppler or hjhjj-md-lgnb shunt by agitated saline contrast study. 3. Mitral valve shows mild mitral regurgitation. Aortic valve is free of stenosis or regurgitation. 4. Left ventricle has normal size and systolic function. Left atrium, right atrium, right ventricle seen within normal limits. Aorta is free of significant disease. CONCLUSIONS: 1. No intracardiac thrombus. No evidence of shunting across the interatrial septum. 2. Normal LV function. MMODL / IJN: [id number] /
== END 2024-11-29 08:52 | disposition home or self-care (01) ==
LOC: CATHCVL 06:19
PROVIDERS: ATTEND Internal Medicine Cardiovascular Disease
DX: G45.9 Transient cerebral ischemic attack, unspecified (principal)
CPT/HCPCS: 93312; 93320; 93325; J2250; J3010

== ENCOUNTER 2025-02-08 06:03 | Day surgery (SDC) | payer MEDICARE ==
[2025-02-03 08:57] VITALS: BMI 26.2
[2025-02-08] MEDS: SODIUM CHLORIDE 0.9% 1,000 ML IV SCH (06:39)
[2025-02-08] MEDS: SODIUM CHLORIDE 0.9% 500 ML 500 ML IV ONE ×2 (06:41→08:38)
[2025-02-08 06:43] VITALS: BP 145/91; PULSE 68; RESP 16; TEMP 97.9
--- NOTE | 2025-02-08 20:37 | P.EPPROC ---
- EP Procedure Note Electrophysiology Procedure Note: Diagnosis Syncope Twelve-lead EKG shows sinus rhythm normal SD narrow QRS normal ST segments normal QT interval Tilt table test per protocol Baseline blood pressure 119/82 mmHg. Heart rate 56 beats minute Patient was tilted upright Magnalax 100 degrees per protocol within 8 minutes there was a sudden drop in blood pressure with a minimal increase in heart rate to 80 beats a minute. The blood pressure dropped further to 71 mmHg. Patient complained of lightheadedness tunnel vision feeling warm and presyncopal. When he was laid supine his blood pressure normalized. Lowest heart rate at that time was 45 beats a minute Impression neurocardiogenic response to upright tilting Normal twelve-lead EKG
== END 2025-02-08 08:38 | disposition home or self-care (01) ==
LOC: CATHEP 06:03
PROVIDERS: ATTEND Internal Medicine Clinical Cardiac Electrophysiology
DX: R01.1 Cardiac murmur, unspecified (principal); R55 Syncope and collapse; E78.2 Mixed hyperlipidemia; G45.9 Transient cerebral ischemic attack, unspecified; Z82.49 Family history of ischemic heart disease and other diseases of the circulatory system; Z79.899 Other long term (current) drug therapy
CPT/HCPCS: 93660

== ENCOUNTER → 2025-02-24 | Outpatient (CLI) | payer MEDICARE | END | disposition home or self-care (01) | LOC: LABWHC1 11:45 | PROVIDERS: ATTEND Psychiatry & Neurology Neurology | DX: R55 Syncope and collapse (principal); Z79.899 Other long term (current) drug therapy | CPT/HCPCS: 36415; 82607; 83036 ==